=== PATIENT | male | born 1960 ===

== ENCOUNTER 2016-10-17 09:38 | Emergency (ER) | payer OTHER ==
[2016-10-17 09:46] VITALS: RESP 18; TEMP 98; O2SAT 98
--- NOTE | 2016-10-17 09:51 | C.PDOC ---
History Of Present Illness 56 y/o male presents to the ED with complains of swelling behind left ear first noted 5 days ago. Pt denies fever, chills, or any other complaints. Time Seen by Provider: 10/17/16 09:50 Chief Complaint (Nursing): Abnormal Skin Integrity History Per: Patient History/Exam Limitations: no limitations Onset/Duration Of Symptoms: Days Current Symptoms Are (Timing): Still Present Quality Of Symptoms: Swollen Severity: Mild Recent travel outside of the [place]: No Past Medical History Reviewed: Historical Data, Nursing Documentation, Vital Signs Vital Signs: Last Vital Signs Temp 98 F 10/17/16 09:43 Pulse 75 10/17/16 10:38 Resp 18 10/17/16 10:38 BP 124/75 10/17/16 10:38 Pulse Ox 98 10/17/16 10:38 - Medical History PMH: Asthma Family History: States: Unknown Family Hx - Social History Hx Alcohol Use: No Hx Substance Use: No Review Of Systems Constitutional: Negative for: Fever, Chills ENT: Positive for: Other (swelling behind left ear) Physical Exam - Physical Exam Appears: Non-toxic, No Acute Distress Skin: Warm, Dry, No Rash Head: Atraumatic, Normacephalic, Other (2 cm fluctuant area with erythema 2 cm posterior to left mastoid; no mastoid tenderness or swelling) Ear(s): Bilateral: Normal Oral Mucosa: Moist Neck: Normal, Normal ROM, Supple Extremity: Bilateral: Atraumatic Neurological/Psych: Oriented x3, Normal Speech ED Course And Treatment O2 Sat by Pulse Oximetry: 98 (room air) Pulse Ox Interpretation: Normal - Incision & Drainage Of Abscess Anesthesia: Lidocaine 1%, With Epi Prep Used: Sterile Water Procedure: Drained Pus, Irrigated Cavity W/Saline, Packed W/Gauze Medical Decision Making Medical Decision Making: abscess i and d, packed, advise 2 day return wound check Disposition - Disposition Referrals: [facility] [Outside] [facility] [Outside] [facility] [Outside] Disposition: HOME/ ROUTINE Disposition Time: 10:30 Condition: FAIR Additional Instructions: return in 2 days for wound check possible packing removal Prescriptions: Naproxen [Naprosyn] 500 mg PO BID PRN #14 tab PRN Reason: Pain, Mild (1-3) Instructions: Abscess Incision and Drainage (ED) Print Language: GEORGIAN - Clinical Impression Clinical Impression: Abscess - Scribe Statement The provider has reviewed the documentation as recorded by the Shanell Rainey Provider Attestation: All medical record entries made by the Shanell were at my direction and personally dictated by me. I have reviewed the chart and agree that the record accurately reflects my personal performance of the history, physical exam, medical decision making, and the department course for this patient. I have also personally directed, reviewed, and agree with the discharge instructions and disposition.
[2016-10-17] MEDS ORDERED: Lidocaine 1%/Epinephrine 1:100000 30 ml vial IJ STA (09:56)
[2016-10-17] MEDS ORDERED: Lidocaine 2% w Epi 1:100,000 Inj IJ ONE (09:58)
[2016-10-17 10:39] VITALS: BP 124/75; PULSE 75
== END 2016-10-17 10:40 | disposition home or self-care (01) ==
LOC: C.ER 09:38
DX: H60.02 Abscess of left external ear (principal)

== ENCOUNTER 2016-10-19 08:43 | Emergency (ER) | payer OTHER ==
[2016-10-19 08:53] VITALS: RESP 18; TEMP 98.4
--- NOTE | 2016-10-19 09:15 | C.PDOC ---
History Of Present Illness The patient ,a 56 y/o male who is s/p I&D procedure for a left-sided posterior auricular abscess, presents to the ED for a wound check. Patient states the packing came out yesterday during bandage change. Patient notes increased localized swelling to area, but notes it is not as painful as initially. Patient denies fever, chills, discharge. History obtained via can sterilizer. VIA TRANS SP I&D 10/17 L POST AURICULAR ABSCESS FOR WOUND CHECK. PS PACKING CAME OUT YESTERDAY DURING BANDAGE CHANGE. STATES W INCR LOCAL SWELLING TO AREA THOUGH NOT PAINFUL INITIALLY. NO DC, FEVER, CHILLS. EXAM NAD SKIN HEALING INCISION S/P I&D. NO PACKING PRESENT. LOCAL INDURATION, NO TENDERNESS. NO FLUCTUANCE, DC, ERYTHEMA. MDM ABX, REFER CLINIC Time Seen by Provider: 10/19/16 09:14 Chief Complaint (Nursing): Wound Check History Per: Patient, Career Services Director History/Exam Limitations: no limitations Onset/Duration Of Symptoms: Days Ago Current Symptoms Are (Timing): Still Present Location Of Injury: Left: Face (posterior auricular ) Quality Of Symptoms: Painful, Swollen. denies: Draining Additional History Per: Patient Past Medical History Reviewed: Historical Data, Nursing Documentation, Vital Signs Vital Signs: Last Vital Signs Temp 98.4 F 10/19/16 08:51 Pulse 82 10/19/16 09:56 Resp 18 10/19/16 09:56 BP 110/74 10/19/16 09:56 Pulse Ox 97 10/19/16 12:05 - Medical History PMH: Asthma Denies: HIV Surgical History: No Surg Hx Family History: States: Unknown Family Hx - Social History Hx Alcohol Use: No Hx Substance Use: No - Immunization History Hx Tetanus Toxoid Vaccination: Yes Hx Influenza Vaccination: No Hx Pneumococcal Vaccination: No Review Of Systems Except As Marked, All Systems Reviewed And Found Negative. Constitutional: Negative for: Fever, Chills Skin: Positive for: Other (for wound check s/p I&D to left post-auricular region. increased localized swelling, slight pain. no discharge) Physical Exam - Physical Exam Appears: Non-toxic, No Acute Distress Skin: Warm (+), Dry, Other (left post-auricular area: healing incision s/p I&D. No packing present. Localized induration, no tenderness. No fluctuance, discharge, or erythema ) Head: Atraumatic Eye(s): bilateral: Normal Inspection Ear(s): Bilateral: Normal Oral Mucosa: Moist Throat: Normal, No Erythema, No Exudate Neck: Supple Extremity: Normal ROM, Capillary Refill (less than 2 seconds ) Neurological/Psych: Oriented x3, Normal Speech, Normal Cognition Gait: Steady ED Course And Treatment O2 Sat by Pulse Oximetry: 97 (on RA) Pulse Ox Interpretation: Normal Progress - Data Reviewed Data Reviewed: Old records Medical Decision Making Medical Decision Making: ABX, REFER CLINIC Disposition Counseled Patient/Family Regarding: Diagnosis, Need For Followup - Disposition Referrals: [facility] [Outside] [facility] [Outside] Disposition: HOME/ ROUTINE Disposition Time: 09:27 Condition: GOOD Additional Instructions: REGRESE SI SINTOMAS RECURRENTES. CONTINA EL CUIDADO DE L[place] HERIDAS SEGN LO INDICADO ANTERIORMENTE Prescriptions: Cephalexin [cephalexin] 500 mg PO BID #14 cap Instructions: Abscess Follow-up (ED) Print Language: AMERICAN - Clinical Impression Clinical Impression: Wound check, abscess - Scribe Statement The provider has reviewed the documentation as recorded by the Scribe (Candice Tijerina) Provider Attestation: All medical record entries made by the Scribe were at my direction and personally dictated by me. I have reviewed the chart and agree that the record accurately reflects my personal performance of the history, physical exam, medical decision making, and the department course for this patient. I have also personally directed, reviewed, and agree with the discharge instructions and disposition.
[2016-10-19 09:57] VITALS: BP 110/74; PULSE 82
[2016-10-19 11:51] VITALS: O2SAT 97
== END 2016-10-19 09:57 | disposition home or self-care (01) ==
LOC: C.ER 08:43
DX: Z48.00 Encounter for change or removal of nonsurgical wound dressing (principal)

== ENCOUNTER 2016-12-12 09:48 | Emergency (ER) | payer OTHER ==
[2016-12-12 09:58] VITALS: TEMP 98.8
--- NOTE | 2016-12-12 10:18 | C.PDOC ---
History Of Present Illness Patient is presenting with rash to scalp and complaining of 2 week history of pain to L heel. He reports that pain is worse with ambulation. Denies trauma. Time Seen by Provider: 12/12/16 09:56 Chief Complaint (Nursing): Abnormal Skin Integrity Past Medical History Vital Signs: Last Vital Signs Temp 98.8 F 12/12/16 09:53 Pulse 79 12/12/16 11:01 Resp 16 12/12/16 11:01 BP 118/69 12/12/16 11:01 Pulse Ox 98 12/12/16 11:01 - Medical History PMH: Asthma Denies: HIV Family History: States: Unknown Family Hx - Social History Hx Alcohol Use: No Hx Substance Use: No - Immunization History Hx Tetanus Toxoid Vaccination: Yes Hx Influenza Vaccination: Yes Hx Pneumococcal Vaccination: No Review Of Systems Cardiovascular: Negative for: Chest Pain, Palpitations Respiratory: Negative for: Cough, Shortness of Breath, SOB with Excertion, Wheezing Gastrointestinal: Negative for: Nausea, Vomiting, Abdominal Pain, Diarrhea, Constipation Musculoskeletal: Positive for: Foot Pain. Negative for: Neck Pain Skin: Positive for: Rash Neurological: Negative for: Weakness, Numbness, Incoordination Physical Exam - Physical Exam Appears: Well, Non-toxic, No Acute Distress Head: Atraumatic, Normacephalic, Other (tinea capitis to scalp) Eye(s): bilateral: Normal Inspection, PERRL, EOMI Neck: Supple Chest: Symmetrical Cardiovascular: Rhythm Regular Respiratory: Normal Breath Sounds, No Rales, No Rhonchi, No Wheezing Gastrointestinal/Abdominal: Soft, No Tenderness, No Mass, No Distention Extremity: Normal ROM, Tenderness (base of L heel), No Calf Tenderness, No Swelling ED Course And Treatment - Laboratory Results Result Diagrams: 12/12/16 10:20 12/12/16 10:20 O2 Sat by Pulse Oximetry: 96 Medical Decision Making Medical Decision Making: Rash is consistent with tinea capitis. Will get baseline lfts. Will dc wtih shampoo three times weekly x 2 weeks and fluconazole once weekly x 8 weeks. Foot pain is consistent with plantar fascitis. R/o fracture 10:40AM Xray negative for fracture. Disposition - Disposition Referrals: [facility] at [facility] [Outside] Disposition: HOME/ ROUTINE Disposition Time: 10:22 Condition: GOOD Additional Instructions: Take antifungal as prescribed. Return to ED if condition worsens. Follow-up with [facility]. Prescriptions: Fluconazole [Diflucan] 150 mg PO QWK #8 tab Selenium Sulfide [Selsun Blue] 1 apful TOP MWF #1 shampoo Instructions: Tinea Capitis (ED), Plantar Fasciitis (ED) Print Language: ALBANIAN - Clinical Impression Clinical Impression: Plantar fasciitis, Tinea capitis
[2016-12-12 10:26] LABS: BASO # 0.1 K/uL (0.0-0.2); BASO % 1.2 % (0.0-2.0); EOS # 0.8 K/uL (0.0-0.7); EOS % 9.1 % (0.0-4.0); HEMOGLOBIN 14.7 g/dL (12.0-18.0); LYMPH # 1.8 K/uL (1.0-4.3); LYMPH % 20.7 % (20.0-40.0); MEAN CELL VOLUME 94.2 fL (80.0-94.0); MEAN CORPUSCULAR HEMOGLOBIN 32.4 pg (27.0-31.0); MEAN CORPUSCULAR HGB CONC 34.4 g/dL (33.0-37.0); MEAN PLATELET VOLUME 8.1 fL (7.2-11.7); MONO # 0.6 K/uL (0.0-0.8); MONO % 6.8 % (0.0-10.0); NEUT # 5.3 K/uL (1.8-7.0); NEUT % 62.2 % (50.0-75.0); RBC 4.55 Mil/uL (4.40-5.90); RED CELL DISTRIBUTION WIDTH 13.2 % (11.5-14.5); WHITE BLOOD COUNT 8.5 K/uL (4.8-10.8)
[2016-12-12 10:32] LABS: ALBUMIN 3.8 g/dL (3.5-5.0)
[2016-12-12 10:35] LABS: ALB/GLOB RATIO 1.1 (1.0-2.1); AST/SGOT 59 U/L (17-59); GFR AFRICAN-AMERICAN > 60; GFR NON-AFRICAN AMERICAN > 60
[2016-12-12 10:36] LABS: ALT/SGPT 114 U/L (21-72); BLOOD UREA NITROGEN 10 mg/dL (9-20); CALCIUM 7.7 mg/dl (8.6-10.4)
--- NOTE | 2016-12-12 10:52 | RAD ---
PROCEDURE: Left Foot Radiographs. HISTORY: foot pain COMPARISON: None available. FINDINGS: BONES: No acute displaced fracture. JOINTS: No dislocation. SOFT TISSUES: Vascular calcifications. No evidence of radiopaque foreign body. OTHER FINDINGS: None. IMPRESSION: No acute displaced fracture, dislocation, or significant joint effusion identified. If symptoms persist, or if there is continued clinical concern, x-ray follow-up in 7-10 days should be considered.
[2016-12-12 11:02] VITALS: BP 118/69; PULSE 79; RESP 16
[2016-12-12 12:15] VITALS: O2SAT 96
== END 2016-12-12 11:01 | disposition home or self-care (01) ==
LOC: C.ER 09:48
DX: M72.2 Plantar fascial fibromatosis (principal); B35.0 Tinea barbae and tinea capitis

== ENCOUNTER 2017-08-06 18:49 | Emergency (ER) | payer OTHER ==
[2017-08-06] MEDS ORDERED: Albuterol-Ipratrop 3 mg / 0.5 (3 ml) UD ONE ×2 (19:04→19:50)
[2017-08-06 19:27] VITALS: RESP 22
[2017-08-06] MEDS: Albuterol-Ipratrop 3 mg / 0.5 (3 ml) UD IH SCH ×3 (19:40→20:06)
[2017-08-06 20:25] LABS: BASO % 0.5 % (0.0-2.0); EOS % 13.8 % (0.0-4.0); HEMOGLOBIN 14.3 g/dL (12.0-18.0); LYMPH % 26.8 % (20.0-40.0); MEAN CELL VOLUME 95.1 fL (80.0-94.0); MEAN CORPUSCULAR HEMOGLOBIN 32.4 pg (27.0-31.0); MEAN CORPUSCULAR HGB CONC 34.1 g/dL (33.0-37.0); MEAN PLATELET VOLUME 8.5 fL (7.2-11.7); MONO # 0.7 K/uL (0.0-0.8); NEUT # 3.6 K/uL (1.8-7.0); NEUT % 48.9 % (50.0-75.0); RBC 4.4 Mil/uL (4.40-5.90); RED CELL DISTRIBUTION WIDTH 13.1 % (11.5-14.5); WHITE BLOOD COUNT 7.4 K/uL (4.8-10.8)
[2017-08-06 20:36] LABS: ALB/GLOB RATIO 1.2 (1.0-2.1); ALBUMIN 3.8 g/dL (3.5-5.0); ALT/SGPT 80 U/L (21-72); AST/SGOT 42 U/L (17-59); BLOOD UREA NITROGEN 16 mg/dL (9-20); CALCIUM 7.4 mg/dl (8.6-10.4); GFR AFRICAN-AMERICAN > 60; GFR NON-AFRICAN AMERICAN > 60
[2017-08-06 20:45] LABS: B-TYPE NATRIURETIC PEPTIDE 23.6 pg/mL (0-900)
[2017-08-06] MEDS ORDERED: Lactated Ringer's 1,000 ML IVB ONE (20:56)
[2017-08-06] MEDS ORDERED: Lactated Ringer's 1,000 ML ONE (21:11)
--- NOTE | 2017-08-06 21:23 | C.PDOC ---
Time Seen by Provider: 08/06/17 19:32 Chief Complaint (Nursing): Shortness Of Breath History Per: Patient, Family Onset/Duration Of Symptoms: Days (around 3 weeks) Current Symptoms Are (Timing): Worse Current Respiratory Medications: Albuterol Severity: Moderate Associated Symptoms: Productive Cough Additional History Per: Prior Records Past Medical History Reviewed: Historical Data, Nursing Documentation, Vital Signs Vital Signs: Last Vital Signs Temp 98.5 F 08/06/17 21:41 Pulse 92 H 08/06/17 21:41 Resp 22 08/06/17 21:41 BP 131/71 08/06/17 21:41 Pulse Ox 92 L 08/06/17 21:41 - Medical History PMH: Asthma Family History: States: Unknown Family Hx - Social History Hx Tobacco Use: No Hx Alcohol Use: No Hx Substance Use: No - Immunization History Hx Tetanus Toxoid Vaccination: Yes Hx Influenza Vaccination: No Hx Pneumococcal Vaccination: No Review Of Systems Except As Marked, All Systems Reviewed And Found Negative. Constitutional: Negative for: Fever ENT: Negative for: Throat Pain Cardiovascular: Negative for: Chest Pain Respiratory: Positive for: Shortness of Breath, Wheezing. Negative for: Hemoptysis Gastrointestinal: Negative for: Vomiting, Abdominal Pain Musculoskeletal: Negative for: Neck Pain, Back Pain, Leg Pain Skin: Negative for: Rash Neurological: Negative for: Weakness, Numbness Physical Exam - Physical Exam Appears: Non-toxic, No Acute Distress Skin: Normal Color, Warm, Dry, No Rash Head: Atraumatic, Normacephalic Eye(s): bilateral: Normal Inspection, PERRL, EOMI Neck: Normal ROM, Supple Cardiovascular: Rhythm Regular Respiratory: No Accessory Muscle Use, Wheezing Gastrointestinal/Abdominal: Soft, No Tenderness Back: No CVA Tenderness Extremity: Normal ROM, No Pedal Edema, No Calf Tenderness Neurological/Psych: Oriented x3, Normal Speech, Normal Motor, Normal Sensation ED Course And Treatment - Laboratory Results Result Diagrams: 08/06/17 20:12 08/06/17 20:12 Lab Interpretation: No Acute Changes ECG: Interpreted By Me, Viewed By Me ECG Rhythm: Sinus Rhythm, Nonspecific Changes Rate From EC O2 Sat by Pulse Oximetry: 97 Pulse Ox Interpretation: Normal - Radiology CXR: Interpreted by Me, Viewed By Me CXR Interpretation: Yes: Other (Hypoinflation) Progress - Interventions Interventions:: Observation, Intravenous fluid - Medications Administered Inhaled nebulized: Anticholinergic, Beta-2 agonist Intravenous: Corticosteroid - Data Reviewed Data Reviewed: Lab, Diagnostic imaging, EKG, Old records - Patient Status Patient status: Mostly improved - Continuity of Care Discussed patient case with:: Patient, Family-HIPPA compliant, ED Nurse - Patient Plan Patient Plan: Discharge, F/U with PCP, Continue present meds Disposition Counseled Patient/Family Regarding: Studies Performed, Diagnosis, Need For Followup, Rx Given - Disposition Referrals: [facility] [Outside] Disposition: HOME/ ROUTINE Disposition Time: 22:12 Condition: IMPROVED Additional Instructions: Follow up with your doctor or in the clinic this week. Return to the ER if you develop fever, chest pain, shortness of breath, worsening of symptoms or if you have any other concerns. Prescriptions: Doxycycline Hyclate 100 mg PO BID #14 capsule predniSONE [predniSONE Tab] 2 tab PO DAILY #10 tab Instructions: Acute Bronchitis, Adult (DC) Forms: Gen Discharge Inst Ukrainian Print Language: LIBERIAN - Clinical Impression Clinical Impression: Acute asthmatic bronchitis
[2017-08-06 22:16] VITALS: BP 130/71; PULSE 96
[2017-08-06 22:28] VITALS: TEMP 98.6
[2017-08-06 22:29] VITALS: O2SAT 96
--- NOTE | 2017-08-07 08:38 | RAD ---
HISTORY: COMPARISON: No prior. TECHNIQUE: Chest PA and lateral FINDINGS: LINES AND TUBES: None. LUNG AND PLEURA: The lungs are well inflated and clear. There are increased streaky opacities in the lungs with mild peribronchial thickening. No focal consolidation HEART AND MEDIASTINUM: The heart is not enlarged. The hilar and mediastinal contours are within normal limits. SKELETAL STRUCTURES: The bony structures are within normal limits for the patient's age. VISUALIZED UPPER ABDOMEN: Normal. OTHER FINDINGS: None. IMPRESSION: Findings are most compatible with reactive small airway disease/ viral bronchitis. No lobar pneumonia.
--- NOTE | 2017-08-08 19:17 | CARD ---
APPROVED REPORT EKG Measurement Heart [id number] <Conclusion> Normal sinus rhythm Prolonged QT Abnormal ECG
== END 2017-08-06 22:29 | disposition home or self-care (01) ==
LOC: C.ER 18:49
DX: J45.909 Unspecified asthma, uncomplicated (principal)
CPT/HCPCS: 71046; 80053; 83880; 84484; 85025; 94150; 94640; 96374; 99285; J2930; J7120

== ENCOUNTER 2017-08-08 11:15 | Emergency (ER) | payer OTHER, SELFPAY ==
[2017-08-08] MEDS ORDERED: MethylPREDNISolone 40 mg Vial IVP STA (12:48)
[2017-08-08] MEDS ORDERED: MethylPREDNISolone 40 mg Vial ONE (13:02)
[2017-08-08] MEDS ORDERED: Albuterol-Ipratrop 3 mg / 0.5 (3 ml) UD ONE (13:02)
[2017-08-08] MEDS: Albuterol-Ipratrop 3 mg / 0.5 (3 ml) UD IH SCH ×2 (13:11→13:33)
[2017-08-08 13:32] LABS: BASO % 0.3 % (0.0-2.0); EOS # 0.1 K/uL (0.0-0.7); EOS % 0.5 % (0.0-4.0); HEMOGLOBIN 14.4 g/dL (12.0-18.0); LYMPH # 1.1 K/uL (1.0-4.3); LYMPH % 10.4 % (20.0-40.0); MEAN CELL VOLUME 95.6 fL (80.0-94.0); MEAN CORPUSCULAR HEMOGLOBIN 31.8 pg (27.0-31.0); MEAN CORPUSCULAR HGB CONC 33.2 g/dL (33.0-37.0); MEAN PLATELET VOLUME 8.4 fL (7.2-11.7); MONO # 0.6 K/uL (0.0-0.8); MONO % 5.1 % (0.0-10.0); NEUT # 9.2 K/uL (1.8-7.0); NEUT % 83.7 % (50.0-75.0); NRBC % 0.1 % (0.0-2.0); RBC 4.52 Mil/uL (4.40-5.90); RED CELL DISTRIBUTION WIDTH 13.4 % (11.5-14.5)
[2017-08-08 13:44] LABS: ALB/GLOB RATIO 1.2 (1.0-2.1); ALBUMIN 4.2 g/dL (3.5-5.0); ALT/SGPT 80 U/L (21-72); AST/SGOT 45 U/L (17-59); BLOOD UREA NITROGEN 19 mg/dL (9-20); CALCIUM 8.2 mg/dl (8.6-10.4); GFR AFRICAN-AMERICAN > 60; GFR NON-AFRICAN AMERICAN > 60
[2017-08-08 13:53] LABS: B-TYPE NATRIURETIC PEPTIDE 105 pg/mL (0-900)
--- NOTE | 2017-08-08 14:46 | C.PDOC ---
History Of Present Illness 57 year old male presents to the ED for evaluation of shortness of breath which began a few days ago. Patient was evaluated in the ED two days ago for similar symptoms and was prescribed Prednisone and antibiotics, which he has been taking as prescribed. Patient developed shortness of breath today and found no relief after using his inhaler. Patient denies fever, chills, cough, chest pain. Time Seen by Provider: 08/08/17 12:32 Chief Complaint (Nursing): Shortness Of Breath History Per: Patient History/Exam Limitations: no limitations Onset/Duration Of Symptoms: Days (2) Current Symptoms Are (Timing): Still Present Quality: denies: "Pain" Current Respiratory Medications: See Home Med List, Prednisone Associated Symptoms: denies: Fever, Chills, Chest Pain, Bloody Cough, Productive Cough Additional History Per: Patient Past Medical History Reviewed: Historical Data, Nursing Documentation, Vital Signs Vital Signs: Last Vital Signs Temp 97.8 F 08/08/17 15:15 Pulse 82 08/08/17 15:15 Resp 18 08/08/17 15:15 BP 101/63 08/08/17 15:15 Pulse Ox 96 08/08/17 15:50 - Medical History PMH: Asthma Denies: HIV Surgical History: No Surg Hx Family History: States: Unknown Family Hx - Social History Hx Tobacco Use: No Hx Alcohol Use: No Hx Substance Use: No - Immunization History Hx Tetanus Toxoid Vaccination: Yes Hx Influenza Vaccination: No Hx Pneumococcal Vaccination: No Review Of Systems Constitutional: Negative for: Fever, Chills Cardiovascular: Negative for: Chest Pain Respiratory: Positive for: Shortness of Breath. Negative for: Cough Physical Exam - Physical Exam Appears: Non-toxic, No Acute Distress Skin: Normal Color, Warm, Dry Head: Atraumatic, Normacephalic Eye(s): bilateral: Normal Inspection Oral Mucosa: Moist Neck: Supple Chest: Symmetrical, No Deformity, No Tenderness Cardiovascular: Rhythm Regular, No Murmur Respiratory: No Rales, No Rhonchi, Wheezing (expiratory ) Extremity: Normal ROM, Capillary Refill (less than 2 seconds ) Neurological/Psych: Oriented x3, Normal Speech, Normal Cognition ED Course And Treatment - Laboratory Results Result Diagrams: 08/08/17 13:24 08/08/17 13:24 Lab Interpretation: No Changes Compared To Prior Results O2 Sat by Pulse Oximetry: 96 (on RA ) Pulse Ox Interpretation: Normal Medical Decision Making Medical Decision Making: Impression: 57 year old male with shortness of breath Plan: * Bloodwork * urinalysis * Duoneb INH * Solu-Medrol IVP * reassess and disposition Progress: Labs reviewed and no acute changes from prior visit. CXR from 2 days ago shows no infiltrates. 1445 On reassessment, patient is resting comfortably and is showing no signs of respiratory distress. He has no fever and lungs clearer. Patient states he is feeling better and is stable for discharge. Patient is advised to follow up with his PMD within 1-2 days for further evaluation and/or return to the ED if symptoms return or worsen. Disposition Counseled Patient/Family Regarding: Diagnosis, Need For Followup, Rx Given - Disposition Referrals: [facility] [Outside] [facility] [Outside] Disposition: HOME/ ROUTINE Disposition Time: 14:45 Condition: IMPROVED Additional Instructions: Por favor, siga con la clnica para ms cuidados Contine con los medicamentos recetados y use nebulizador diariamente. 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 - Scribe Statement The provider has reviewed the documentation as recorded by the Scribe (Candice Tijerina) All medical record entries made by the Scribe were at my direction and personally dictated by me. I have reviewed the chart and agree that the record accurately reflects my personal performance of the history, physical exam, medical decision making, and the department course for this patient. I have also personally directed, reviewed, and agree with the discharge instructions and disposition.
[2017-08-08 15:15] VITALS: BP 101/63; PULSE 82; RESP 18; TEMP 97.8
[2017-08-08 15:19] VITALS: O2SAT 96
== END 2017-08-08 15:15 | disposition home or self-care (01) ==
LOC: C.ER 11:15
DX: J45.909 Unspecified asthma, uncomplicated (principal)
CPT/HCPCS: 80053; 83880; 85025; 94150; 94640; 96374; 99284; J2920

== ENCOUNTER 2017-08-11 10:40 | Inpatient (IN) | payer MEDICAID, SELFPAY ==
[2017-08-11 10:52] VITALS: BMI 31.8
[2017-08-11] MEDS ORDERED: Albuterol-Ipratrop 3 mg / 0.5 (3 ml) UD ONE ×3 (11:05→16:36)
[2017-08-11] MEDS ORDERED: Albuterol-Ipratrop 3 mg / 0.5 (3 ml) UD INH STA (11:11)
--- NOTE | 2017-08-11 11:27 | C.PDOC ---
History Of Present Illness 57 year old male with PMHx of asthma presents to the ED c/o cough, SOB that started yesterday. Patient was seen on 08/06 and 08/08 for the same symptoms. Patient states SOB worsened yesterday was unable to sleep. 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 Patient was s/p duoneb prior to my evaluation. Patient denies CP, weakness, numbness, dizziness, nausea, vomit, recent travel. PS TOOK PREDNISONE TODAY Time Seen by Provider: 08/11/17 11:08 Chief Complaint (Nursing): Shortness Of Breath History Per: Patient History/Exam Limitations: no limitations Onset/Duration Of Symptoms: Days Current Symptoms Are (Timing): Still Present Associated Symptoms: Cough Preciptating Factors: None Severity: Mild Recent travel outside of the [place]: No Additional History Per: Patient - Asthma History Date Of Last ED Visit: 08/08/17 Last Hospital Visit: 08/08/17 Medication Use: Daily (x2) Control Medications: Inhaled Steroids Past Medical History Reviewed: Historical Data, Nursing Documentation, Vital Signs Vital Signs: Last Vital Signs Temp 97.9 F 08/11/17 16:58 Pulse 95 H 08/11/17 16:58 Resp 16 08/11/17 16:58 BP 125/75 08/11/17 16:58 Pulse Ox 97 08/11/17 16:58 - Medical History PMH: Asthma Denies: HIV Surgical History: No Surg Hx Family History: States: Unknown Family Hx - Social History Hx Tobacco Use: No Hx Alcohol Use: No Hx Substance Use: No - Immunization History Hx Tetanus Toxoid Vaccination: Yes Hx Influenza Vaccination: No Hx Pneumococcal Vaccination: No Review Of Systems Constitutional: Negative for: Fever, Chills ENT: Negative for: Nose Discharge, Nose Congestion Respiratory: Positive for: Cough, Shortness of Breath Gastrointestinal: Negative for: Vomiting, Abdominal Pain Musculoskeletal: Negative for: Back Pain Skin: Negative for: Rash Neurological: Negative for: Weakness, Numbness, Headache, Dizziness Physical Exam - Physical Exam Appears: Non-toxic, No Acute Distress Skin: Normal Color, Warm, Dry Head: Atraumatic, Normacephalic Eye(s): bilateral: Normal Inspection Ear(s): Bilateral: Normal Nose: No Discharge Oral Mucosa: Moist Neck: Normal ROM, Supple Chest: Symmetrical Cardiovascular: Rhythm Regular, No Murmur Respiratory: No Accessory Muscle Use, No Rales, No Rhonchi, Wheezing (B/L expiratory ), Other (no retractions) Gastrointestinal/Abdominal: Soft, No Tenderness, No Guarding, No Rebound Extremity: Normal ROM, No Tenderness, No Pedal Edema, Capillary Refill (< 2 seconds), No Swelling Pulses: Left Dorsalis Pedis: Normal, Right Dorsalis Pedis: Normal Neurological/Psych: Oriented x3, Normal Speech ED Course And Treatment - Laboratory Results Result Diagrams: 08/11/17 12:09 08/11/17 12:09 Interpretation Of Abnormal: HYPOXEMIA ECG: Interpreted By Ks ECG Rhythm: Sinus Tachycardia ECG Interpretation: Abnormal Rate From EC O2 Sat by Pulse Oximetry: 97 (On RA) Pulse Ox Interpretation: Normal - CT Scan/US CT chest Other Rad Studies (CT/US): Read By Radiologist, Radiology Report Reviewed CT/US Interpretation: PROCEDURE: CT Chest with contrast (Pulmonary Angiogram). HISTORY: HYPOXEMIA, SOB r/o PE. COMPARISON: None available. TECHNIQUE: Axial computed tomography images were obtained of the chest in the pulmonary arterial phase of enhancement. Coronal and sagittal reformatted images were created and reviewed. Intravenous contrast dose: 100 mL of Visipaque 320. Radiation dose: Total exam DLP = 574.08 mGy-cm. This CT exam was performed using one or more of the following dose reduction techniques: Automated exposure control, adjustment of the mA and/or kV according to patient size, and/ or use of iterative reconstruction technique. Limited evaluation of secondary pulmonary arterial branches to lack of adequate contrast opacification. FINDINGS: PULMONARY ARTERIES: Unremarkable. No pulmonary embolism in the main and right and left pulmonary arteries. Segmental and subsegmental arteries suboptimally evaluated. AORTA: Mild dilatation of the ascending aorta measuring up to 4.1 centimeters. LUNGS: Unremarkable. No nodule, mass or pulmonary consolidation. PLEURAL SPACES: Unremarkable. No effusion or pneuomothorax. HEART: Unremarkable. No cardiomegaly. No significant pericardial effusion. LYMPH NODES: Mildly prominent lymph nodes in the mediastinum. The largest lymph node is seen in the aortopulmonary window measuring approximately 1.2 x 2.5 centimeters. This is nonspecific. BONES, CHEST WALL: Mild degenerative changes of the shoulders. OTHER FINDINGS: Mildly heterogeneous thyroid gland. Dedicated ultrasound can be obtained as per clinical indications. Mild thickening of the esophagus. IMPRESSION: No large pulmonary embolus. Mildly prominent lymph nodes in the mediastinum, largest being 1.2 x 2.5 centimeters in the aortopulmonary window. Mild dilatation of the ascending aorta measuring up to 4.1 centimeters. Mild heterogeneity of the thyroid gland. Dedicated ultrasound can be obtained for further evaluation. Mild thickening of the esophagus noted. Upper endoscopy can be obtained if clinically significant. Other findings as above. Progress - Re-Evaluation Re-evaluation Note: 08/11/17 14:16 FEELS BETTER W O2. VSS. D/W DR TREVIÑO AWARE OF ER FINDINGS. - Data Reviewed Data Reviewed: Lab, Diagnostic imaging, EKG, Old records Medical Decision Making Medical Decision Making: Impression: asthma exacerbation Plan: * ABG * EKG * CT angio chest * Labs * Duoneb 3 ml IH * Nebulizer treatment Disposition Counseled Patient/Family Regarding: Studies Performed, Diagnosis - Disposition Disposition: HOSPITALIZED Disposition Time: 14:16 Condition: STABLE - POA Present On Arrival: Poor Glycemic Control - Clinical Impression Clinical Impression: Hypoxemia, Dyspnea, Asthma exacerbation - Scribe Statement The provider has reviewed the documentation as recorded by the Scribe Rebel Rinaldi All medical record entries made by the Scribe were at my direction and personally dictated by me. I have reviewed the chart and agree that the record accurately reflects my personal performance of the history, physical exam, medical decision making, and the department course for this patient. I have also personally directed, reviewed, and agree with the discharge instructions and disposition. Decision To Admit - Pt Status Changed To: Hospital Disposition Of: Inpatient - Admit Certification Admit to Inpatient:: After my assessment, the patient will require hospitalization for at least two midnights. This is because of the severity of symptoms shown, intensity of services needed, and/or the medical risk in this patient being treated as an outpatient. - InPatient: Physician Admission Certification:: SEE NOTE - . Bed Request Type: Telemetry Admitting Physician: Alejandro Treviño Patient Diagnosis: Hypoxemia, Dyspnea, Asthma exacerbation
[2017-08-11 11:52] LABS: ABG ALLEN TEST POS; ARTERIAL BLOOD GAS HCO3 25.8 mmol/L (21-28); ARTERIAL BLOOD GAS HEMOGLOBIN 15.4 g/dL (11.7-17.4); ARTERIAL BLOOD GAS O2 SAT 94.4 % (95-98); ARTERIAL BLOOD GAS PCO2 36 mm/Hg (35-45); ARTERIAL BLOOD GAS PH 7.45 (7.35-7.45); ARTERIAL BLOOD GAS PO2 62 mm/Hg (80-100); ARTERIAL BLOOD GAS TCO2 26.1 mmol/L (22-28)
[2017-08-11 12:16] LABS: BASO % 0.2 % (0.0-2.0); EOS # 0.1 K/uL (0.0-0.7); EOS % 0.4 % (0.0-4.0); HEMOGLOBIN 14.9 g/dL (12.0-18.0); LYMPH # 0.8 K/uL (1.0-4.3); LYMPH % 6.8 % (20.0-40.0); MEAN CELL VOLUME 94.6 fL (80.0-94.0); MEAN CORPUSCULAR HEMOGLOBIN 32.5 pg (27.0-31.0); MEAN CORPUSCULAR HGB CONC 34.3 g/dL (33.0-37.0); MONO # 0.8 K/uL (0.0-0.8); MONO % 6.4 % (0.0-10.0); NEUT # 10.1 K/uL (1.8-7.0); NEUT % 86.2 % (50.0-75.0); PLATELET COUNT 234 K/uL (130-400); RBC 4.57 Mil/uL (4.40-5.90); RED CELL DISTRIBUTION WIDTH 13.1 % (11.5-14.5); WHITE BLOOD COUNT 11.8 K/uL (4.8-10.8)
[2017-08-11 12:35] LABS: ALB/GLOB RATIO 1.1 (1.0-2.1); ALBUMIN 4.1 g/dL (3.5-5.0); ALT/SGPT 69 U/L (21-72); AST/SGOT 39 U/L (17-59); BLOOD UREA NITROGEN 12 mg/dL (9-20); CALCIUM 7.9 mg/dl (8.6-10.4); GFR AFRICAN-AMERICAN > 60; GFR NON-AFRICAN AMERICAN > 60
[2017-08-11 12:40] LABS: B-TYPE NATRIURETIC PEPTIDE 50.5 pg/mL (0-900)
[2017-08-11] MEDS ORDERED: Iodixanol 320 MG/ML 100 ML BOTTLE IV ONE (12:48)
[2017-08-11 12:50] LABS: EOSINOPHIL 1 % (0-4); LYMPHOCYTE 9 % (20-40); MONOCYTE 3 % (0-10); NEUTROPHIL 87 % (50-75); PLATELET ESTIMATE NORMAL (NORMAL); TOTAL CELLS COUNTED 100
[2017-08-11] MEDS: Albuterol-Ipratrop 3 mg / 0.5 (3 ml) UD IH SCH (13:34)
--- NOTE | 2017-08-11 13:42 | CT ---
PROCEDURE: CT Chest with contrast (Pulmonary Angiogram) HISTORY: HYPOXEMIA, SOB r/o PE COMPARISON: None available. TECHNIQUE: Axial computed tomography images were obtained of the chest in the pulmonary arterial phase of enhancement. Coronal and sagittal reformatted images were created and reviewed. Intravenous contrast dose: 100 mL of Visipaque 320 Radiation dose: Total exam DLP = 574.08 mGy-cm. This CT exam was performed using one or more of the following dose reduction techniques: Automated exposure control, adjustment of the mA and/or kV according to patient size, and/or use of iterative reconstruction technique. Limited evaluation of secondary pulmonary arterial branches to lack of adequate contrast opacification. FINDINGS: PULMONARY ARTERIES: Unremarkable. No pulmonary embolism in the main and right and left pulmonary arteries. Segmental and subsegmental arteries suboptimally evaluated. AORTA: Mild dilatation of the ascending aorta measuring up to 4.1 centimeters. LUNGS: Unremarkable. No nodule, mass or pulmonary consolidation. PLEURAL SPACES: Unremarkable. No effusion or pneuomothorax. HEART: Unremarkable. No cardiomegaly. No significant pericardial effusion. LYMPH NODES: Mildly prominent lymph nodes in the mediastinum. The largest lymph node is seen in the aortopulmonary window measuring approximately 1.2 x 2.5 centimeters. This is nonspecific. BONES, CHEST WALL: Mild degenerative changes of the shoulders. OTHER FINDINGS: Mildly heterogeneous thyroid gland. Dedicated ultrasound can be obtained as per clinical indications. Mild thickening of the esophagus. IMPRESSION: No large pulmonary embolus. Mildly prominent lymph nodes in the mediastinum, largest being 1.2 x 2.5 centimeters in the aortopulmonary window. Mild dilatation of the ascending aorta measuring up to 4.1 centimeters. Mild heterogeneity of the thyroid gland. Dedicated ultrasound can be obtained for further evaluation. Mild thickening of the esophagus noted. Upper endoscopy can be obtained if clinically significant. Other findings as above.
--- NOTE | 2017-08-11 16:12 | CP.PCM.HP ---
<DashaleonardoSwetha perezZenon - Last Filed: 08/11/17 15:58> History of Present Illness - History of Present Illness History of Present Illness: HPI: Patient is a 57 year old male with a history of asthma, presents to the ED with complaints of shortness of breath. Patient presented to the ED on Monday and Monday this week with the same complaints. He was sent home with prednisone and amoxicillin; however, patient states he feels worse than before. Patient states his symptoms started 3 weeks ago and are progressively worsening. He states he used his nebulizer 3 times and his albuterol 8 times without relief. Patient reports a similar episode 8 years ago, but has not had any since. He denies recent sickness, sick contacts, environmental triggers, and occupational triggers. Patient complains of chest pain with coughing, a nonproductive cough, headaches, dyspnea at rest and with exertion. Patient states he sleeps on an incline, becomes out of breath after walking up 5 stairs , and short of breath walking to the bathroom. Patient denies chest pain, abdominal pain, nausea, vomiting, fevers, leg pain and swelling, dysuria, diarrhea, and constipation. 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 Allergies: NKDA Medications: albuterol prn, nebulizer prn Present on Admission - Present on Admission Any Indicators Present on Admission: No Review of Systems - Constitutional Constitutional: Headache. absent: Chills, Fever, Weakness - EENT Nose/Mouth/Throat: absent: Sore Throat - Cardiovascular Cardiovascular: Chest Pain (with coughing), Dyspnea, Dyspnea on Exertion, Rapid Heart Rate. absent: Edema, Leg Edema, Palpitations - Respiratory Respiratory: Cough (nonproductive), Dyspnea, Dyspnea on Exertion, Wheezing, Pain with Coughing - Gastrointestinal Gastrointestinal: absent: Abdominal Pain, Constipation, Diarrhea, Hematemesis, Hematochezia, Nausea, Vomiting - Genitourinary Genitourinary: absent: Dysuria, Hematuria, Urinary Frequency - Integumentary Integumentary: absent: Rash - Neurological Neurological: Headaches. absent: Dizziness, Weakness - Endocrine Endocrine: Fatigue, Palpitations Past Patient History - Infectious Disease Hx of Infectious Diseases: None - Past Social History Smoking Status: Never Smoked - CARDIAC Hx Cardiac Disorders: No - PULMONARY Hx Asthma: Yes - NEUROLOGICAL Hx Neurological Disorder: No - HEENT Hx HEENT Problems: No - HEMATOLOGICAL/ONCOLOGICAL Hx Human Immunodeficiency Virus (HIV): No - MUSCULOSKELETAL/RHEUMATOLOGICAL Hx Falls: No - PSYCHIATRIC Hx Substance Use: No - SURGICAL HISTORY Hx Surgeries: No - ANESTHESIA Hx Anesthesia: No Meds Allergies/Adverse Reactions: Allergies Allergy/AdvReac Type Severity Reaction Status Date / Time No Known Allergies Allergy Verified 08/11/17 10:50 Physical Exam - Head Exam Head Exam: ATRAUMATIC, NORMOCEPHALIC - Eye Exam Eye Exam: EOMI, Normal appearance, PERRL - ENT Exam ENT Exam: Mucous Membranes Moist - Respiratory Exam Respiratory Exam: Decreased Breath Sounds, Wheezes, Respiratory Distress. absent: Clear to Auscultation Bilateral, Rales, Rhonchi, NORMAL BREATHING PATTERN - Cardiovascular Exam Cardiovascular Exam: Tachycardia, REGULAR RHYTHM, +S1, +S2 - GI/Abdominal Exam GI & Abdominal Exam: Normal Bowel Sounds, Soft. absent: Firm, Tenderness - Extremities Exam Extremities exam: Positive for: normal inspection, pedal pulses present. Negative for: pedal edema, tenderness - Neurological Exam Neurological exam: Alert, Oriented x3 - Psychiatric Exam Psychiatric exam: Normal Affect, Normal Mood - Skin Skin Exam: Dry, Intact, Warm Results - Vital Signs Recent Vital Signs: Last Vital Signs Temp 98.8 F 08/11/17 10:54 Pulse 112 H 08/11/17 10:54 Resp 26 H 08/11/17 11:09 BP 159/84 H 08/11/17 10:54 Pulse Ox 97 08/11/17 14:17 - Labs Result Diagrams: 08/11/17 12:09 08/11/17 12:09 Labs: Laboratory Results - last 24 hr 08/11/17 08/11/17 08/11/17 11:49 12:09 12:09 WBC 11.8 H RBC 4.57 Hgb 14.9 Hct 43.2 MCV 94.6 H MCH 32.5 H MCHC 34.3 RDW 13.1 Plt Count 234 MPV 8.0 Neut % (Auto) 86.2 H Lymph % (Auto) 6.8 L Young % (Auto) 6.4 Eos % (Auto) 0.4 Baso % (Auto) 0.2 Neut # (Auto) 10.1 H Lymph # (Auto) 0.8 L Young # (Auto) 0.8 Eos # (Auto) 0.1 Baso # (Auto) 0.0 Neutrophils % (Manual) 87 H Lymphocytes % (Manual) 9 L Monocytes % (Manual) 3 Eosinophils % (Manual) 1 Platelet Estimate Normal D-Dimer, Quantitative Puncture Site Rr pCO2 36 pO2 62 L HCO3 25.8 ABG pH 7.45 ABG Total CO2 26.1 ABG O2 Saturation 94.4 L ABG Base Excess 1.3 ABG Hemoglobin 15.4 ABG Carboxyhemoglobin 1.6 H POC ABG HHb (Measured) 5.4 H ABG Methemoglobin 1.5 Wilfredo Test Pos Hgb O2 Saturation 91.5 L Sodium 140 Potassium 4.0 Chloride 101 Carbon Dioxide 24 Anion Gap 19 BUN 12 Creatinine 0.6 L Est GFR ( Amer) > 60 Est GFR (Non-Af Amer) > 60 Random Glucose 160 H Calcium 7.9 L Total Bilirubin 0.5 AST 39 ALT 69 Alkaline Phosphatase 89 Troponin I < 0.0120 NT-Pro-B Natriuret Pep 50.5 Total Protein 7.6 Albumin 4.1 Globulin 3.5 Albumin/Globulin Ratio 1.1 08/11/17 12:09 WBC RBC Hgb Hct MCV MCH MCHC RDW Plt Count MPV Neut % (Auto) Lymph % (Auto) Young % (Auto) Eos % (Auto) Baso % (Auto) Neut # (Auto) Lymph # (Auto) Young # (Auto) Eos # (Auto) Baso # (Auto) Neutrophils % (Manual) Lymphocytes % (Manual) Monocytes % (Manual) Eosinophils % (Manual) Platelet Estimate D-Dimer, Quantitative < 200 Puncture Site pCO2 pO2 HCO3 ABG pH ABG Total CO2 ABG O2 Saturation ABG Base Excess ABG Hemoglobin ABG Carboxyhemoglobin POC ABG HHb (Measured) ABG Methemoglobin Wilfredo Test Hgb O2 Saturation Sodium Potassium Chloride Carbon Dioxide Anion Gap BUN Creatinine Est GFR ( Amer) Est GFR (Non-Af Amer) Random Glucose Calcium Total Bilirubin AST ALT Alkaline Phosphatase Troponin I NT-Pro-B Natriuret Pep Total Protein Albumin Globulin Albumin/Globulin Ratio Assessment & Plan (1) Asthma exacerbation Assessment and Plan: Hx of asthma CXR (08/06/17): findings most compatibile with reactive small airway disease/ viral bronchitis; no lobar pneumonia. Chest CTA (08/11/17): no large PE; mildly prominent lymph nodes in mediastinum, largest being 1/2x2/5cm in [id number] window; mild dilatation of the ascending aorta measuring up to 4.1cm; mild heterogeneity of the thyroid gland; mild thickening of esophagus. Afebrile, no leukocytosis/bandemia TSH/Free T4: f/u results UDS: f/u results Troponins x1: negative; f/u trops x2 EKG: sinus tachycardiac @103bpm; f/u EKGx2 Influenza: f/u results Echo: f/u results Duonebs Q4 GURPREET Pulmicort 0.5 INH BID Solumedrol 60mg IV Q6 gurpreet Singulair 10mg PO HS Rocephin 1gm Q24h O2 via nasal cannula (3L) Status: Acute (2) Prophylactic measure Assessment and Plan: DVT: SCDs, Heparin 5000sc Q12 GI: Protonix 40mg PO daily [place] healthy diet PT/OT Status: Acute <Alejandro Calloway H - Last Filed: 08/11/17 17:38> Results - Vital Signs Recent Vital Signs: Last Vital Signs Temp 97.9 F 08/11/17 16:58 Pulse 95 H 08/11/17 16:58 Resp 16 08/11/17 16:58 BP 125/75 08/11/17 16:58 Pulse Ox 97 08/11/17 17:28 - Labs Result Diagrams: 08/11/17 12:09 08/11/17 12:09 Labs: Laboratory Results - last 24 hr 08/11/17 08/11/17 08/11/17 11:49 12:09 12:09 WBC 11.8 H RBC 4.57 Hgb 14.9 Hct 43.2 MCV 94.6 H MCH 32.5 H MCHC 34.3 RDW 13.1 Plt Count 234 MPV 8.0 Neut % (Auto) 86.2 H Lymph % (Auto) 6.8 L Young % (Auto) 6.4 Eos % (Auto) 0.4 Baso % (Auto) 0.2 Neut # (Auto) 10.1 H Lymph # (Auto) 0.8 L Young # (Auto) 0.8 Eos # (Auto) 0.1 Baso # (Auto) 0.0 Neutrophils % (Manual) 87 H Lymphocytes % (Manual) 9 L Monocytes % (Manual) 3 Eosinophils % (Manual) 1 Platelet Estimate Normal D-Dimer, Quantitative Puncture Site Rr pCO2 36 pO2 62 L HCO3 25.8 ABG pH 7.45 ABG Total CO2 26.1 ABG O2 Saturation 94.4 L ABG Base Excess 1.3 ABG Hemoglobin 15.4 ABG Carboxyhemoglobin 1.6 H POC ABG HHb (Measured) 5.4 H ABG Methemoglobin 1.5 Wilfredo Test Pos Hgb O2 Saturation 91.5 L Sodium 140 Potassium 4.0 Chloride 101 Carbon Dioxide 24 Anion Gap 19 BUN 12 Creatinine 0.6 L Est GFR ( Amer) > 60 Est GFR (Non-Af Amer) > 60 Random Glucose 160 H Calcium 7.9 L Total Bilirubin 0.5 AST 39 ALT 69 Alkaline Phosphatase 89 Troponin I < 0.0120 NT-Pro-B Natriuret Pep 50.5 Total Protein 7.6 Albumin 4.1 Globulin 3.5 Albumin/Globulin Ratio 1.1 Urine Color Urine Clarity Urine pH Ur Specific [place] Urine Protein Urine Glucose (UA) Urine Ketones Urine Blood Urine Nitrate Urine Bilirubin Urine Urobilinogen Ur Leukocyte Esterase Urine WBC (Auto) Urine RBC (Auto) Ur Squamous Epith Cells Ur Transition Epith Cell Urine Bacteria Urine Opiates Screen Urine Methadone Screen Ur Barbiturates Screen Ur Phencyclidine Scrn Ur Amphetamines Screen U Benzodiazepines Scrn U Oth Cocaine Metabols U Cannabinoids Screen Influenza Typ A,B (EIA) 08/11/17 08/11/17 08/11/17 12:09 16:30 16:30 WBC RBC Hgb Hct MCV MCH MCHC RDW Plt Count MPV Neut % (Auto) Lymph % (Auto) Young % (Auto) Eos % (Auto) Baso % (Auto) Neut # (Auto) Lymph # (Auto) Young # (Auto) Eos # (Auto) Baso # (Auto) Neutrophils % (Manual) Lymphocytes % (Manual) Monocytes % (Manual) Eosinophils % (Manual) Platelet Estimate D-Dimer, Quantitative < 200 Puncture Site pCO2 pO2 HCO3 ABG pH ABG Total CO2 ABG O2 Saturation ABG Base Excess ABG Hemoglobin ABG Carboxyhemoglobin POC ABG HHb (Measured) ABG Methemoglobin Wilfredo Test Hgb O2 Saturation Sodium Potassium Chloride Carbon Dioxide Anion Gap BUN Creatinine Est GFR ( Amer) Est GFR (Non-Af Amer) Random Glucose Calcium Total Bilirubin AST ALT Alkaline Phosphatase Troponin I NT-Pro-B Natriuret Pep Total Protein Albumin Globulin Albumin/Globulin Ratio Urine Color Yellow Urine Clarity Clear Urine pH 6.0 Ur Specific [place] 1.056 H Urine Protein Negative Urine Glucose (UA) Normal Urine Ketones Negative Urine Blood Negative Urine Nitrate Negative Urine Bilirubin Negative Urine Urobilinogen Normal Ur Leukocyte Esterase Neg Urine WBC (Auto) 1 Urine RBC (Auto) 1 Ur Squamous Epith Cells < 1 Ur Transition Epith Cell < 1 Urine Bacteria Rare Urine Opiates Screen Negative Urine Methadone Screen Negative Ur Barbiturates Screen Negative Ur Phencyclidine Scrn Negative Ur Amphetamines Screen Negative U Benzodiazepines Scrn Negative U Oth Cocaine Metabols Negative U Cannabinoids Screen Positive H Influenza Typ A,B (EIA) 08/11/17 Unknown WBC RBC Hgb Hct MCV MCH MCHC RDW Plt Count MPV Neut % (Auto) Lymph % (Auto) Young % (Auto) Eos % (Auto) Baso % (Auto) Neut # (Auto) Lymph # (Auto) Young # (Auto) Eos # (Auto) Baso # (Auto) Neutrophils % (Manual) Lymphocytes % (Manual) Monocytes % (Manual) Eosinophils % (Manual) Platelet Estimate D-Dimer, Quantitative Puncture Site pCO2 pO2 HCO3 ABG pH ABG Total CO2 ABG O2 Saturation ABG Base Excess ABG Hemoglobin ABG Carboxyhemoglobin POC ABG HHb (Measured) ABG Methemoglobin Wilfredo Test Hgb O2 Saturation Sodium Potassium Chloride Carbon Dioxide Anion Gap BUN Creatinine Est GFR ( Amer) Est GFR (Non-Af Amer) Random Glucose Calcium Total Bilirubin AST ALT Alkaline Phosphatase Troponin I NT-Pro-B Natriuret Pep Total Protein Albumin Globulin Albumin/Globulin Ratio Urine Color Urine Clarity Urine pH Ur Specific [place] Urine Protein Urine Glucose (UA) Urine Ketones Urine Blood Urine Nitrate Urine Bilirubin Urine Urobilinogen Ur Leukocyte Esterase Urine WBC (Auto) Urine RBC (Auto) Ur Squamous Epith Cells Ur Transition Epith Cell Urine Bacteria Urine Opiates Screen Urine Methadone Screen Ur Barbiturates Screen Ur Phencyclidine Scrn Ur Amphetamines Screen U Benzodiazepines Scrn U Oth Cocaine Metabols U Cannabinoids Screen Influenza Typ A,B (EIA) Pos for influenza a H Attending/Attestation - Attestation I have personally seen and examined this patient.: Yes I have fully participated in the care of the patient.: Yes I have reviewed all pertinent clinical information: Yes Notes (Text): Medical attending: Patient was seen and examined by me. Agree with the above note by the resident The patient when we saw him did not have flu studies return and I was notified shortly thereafter that he tested positive for influenza. We will start patient on Tamiflu PO BID, IVF, tylenol, and monitor patient There was an order for rocephin - and given that he is coughing so much we will keep this order. Also the solumedrol and pulmicort we will keep as well since he explains to us there is a history of asthma. Patient will need a contact precuation/isolation bed. thank you Alejandro Calloway
[2017-08-11] MEDS: Albuterol-Ipratrop 3 mg / 0.5 (3 ml) UD INH SCH ×2 (16:36→20:31)
[2017-08-11 16:54] LABS: BARBITURATES, UR NEGATIVE (NEGATIVE); BENZODIAZEPINES, UR NEGATIVE (NEGATIVE); OPIATES, UR NEGATIVE (NEGATIVE); PHENCYCLIDINE, UR NEGATIVE (NEGATIVE)
[2017-08-11 16:58] LABS: SQUAMOUS EPITHIAL < 1 /hpf (0-5); URINE BACTERIA RARE (<OCC); URINE BILIRUBIN NEGATIVE (NEGATIVE); URINE BLOOD NEGATIVE (NEGATIVE); URINE CLARITY Clear (Clear); URINE COLOR Yellow (YELLOW); URINE GLUCOSE (UA) NORMAL (Normal); URINE LEUKOCYTE ESTERASE NEG Leu/uL (Negative); URINE PROTEIN NEGATIVE (NEGATIVE); URINE UROBILINOGEN NORMAL mg/dL (0.2-1.0)
[2017-08-11] MEDS: Sodium Chloride 0.9% 1,000 ML IV SCH (18:19)
[2017-08-11] MEDS: MethylPREDNISolone 40 mg Vial IV SCH (18:21)
[2017-08-11 18:43] LABS: CK-MB 1.13 ng/mL (0.0-3.38)
[2017-08-11] MEDS: Budesonide 0.5 mg/2 ml Inhal Susp UD INH SCH (20:32)
[2017-08-12] MEDS: MethylPREDNISolone 40 mg Vial IV SCH ×5 (00:17→23:53)
[2017-08-12] MEDS: Albuterol-Ipratrop 3 mg / 0.5 (3 ml) UD INH SCH ×6 (00:28→20:11)
[2017-08-12] MEDS: Sodium Chloride 0.9% 1,000 ML IV SCH ×4 (05:26→23:17)
[2017-08-12] MEDS: Budesonide 0.5 mg/2 ml Inhal Susp UD INH SCH ×2 (07:24→20:11)
[2017-08-12 07:37] LABS: HEMOGLOBIN 14.7 g/dL (12.0-18.0); LYMPH # 0.8 K/uL (1.0-4.3); LYMPH % 7.9 % (20.0-40.0); MEAN CELL VOLUME 95.8 fL (80.0-94.0); MEAN CORPUSCULAR HGB CONC 34.4 g/dL (33.0-37.0); MEAN PLATELET VOLUME 8.7 fL (7.2-11.7); MONO # 0.3 K/uL (0.0-0.8); MONO % 2.8 % (0.0-10.0); NEUT # 8.5 K/uL (1.8-7.0); NEUT % 89.3 % (50.0-75.0); PLATELET COUNT 221 K/uL (130-400); RBC 4.46 Mil/uL (4.40-5.90); RED CELL DISTRIBUTION WIDTH 13.4 % (11.5-14.5); WHITE BLOOD COUNT 9.5 K/uL (4.8-10.8)
[2017-08-12 07:51] LABS: ALB/GLOB RATIO 1.1 (1.0-2.1); ALBUMIN 3.8 g/dL (3.5-5.0); ALT/SGPT 71 U/L (21-72); AST/SGOT 34 U/L (17-59); BLOOD UREA NITROGEN 17 mg/dL (9-20); CALCIUM 7.9 mg/dl (8.6-10.4); GFR AFRICAN-AMERICAN > 60; GFR NON-AFRICAN AMERICAN > 60
[2017-08-12] MEDS: Pantoprazole 40 mg EC Tab PO SCH (09:04)
--- NOTE | 2017-08-12 09:10 | CP.PCM.PN ---
Subjective - Date & Time of Evaluation Date of Evaluation: 08/12/17 Time of Evaluation: 09:00 - Subjective Subjective: Patient was seen and examined by me Our conversation was with my minimal Greenlandic and his minimal Ecuadorean. He was able to explain to me he did feel somewhat better than yesterday, breathing easier, however still coughing and no phelgm It is still operator when he coughs. He denies fevers, denies chills, denies body aches, deny changes to bowel or bladder, tolerating food ok, no nausea I explained to patient he tested + for influenza. He is now on tamiflu. For now we will also continue rocephin and azithromycin. He is on slow IVF, tylenol and also solumedrol IV. The chest imaging is ok. If he does ok tommorow I think we can DC abx. On exam he did not have the wheezing like he did yesterday. Objective - Vital Signs/Intake and Output Vital Signs (last 24 hours): Temp Pulse Resp BP Pulse Ox 97.5 F L 84 20 112/70 98 08/12/17 07:32 08/12/17 07:32 08/12/17 07:32 08/12/17 07:32 08/12/17 07:32 Intake and Output: 08/12/17 08/12/17 06:59 18:59 Intake Total 440 Balance 440 - Medications Medications: Current Medications Acetaminophen (Tylenol 325mg Tab) 650 mg PO Q6 PRN PRN Reason: Fever >100.4 F Albuterol/Ipratropium (Duoneb 3 Mg/0.5 Mg (3 Ml) Ud) 3 ml INH RQ4 [facility] Last Admin: 08/12/17 07:24 Dose: 3 ml Budesonide (Pulmicort Respules) 0.5 mg INH RQ12 [facility] Last Admin: 08/12/17 07:24 Dose: 0.5 mg Heparin Sodium (Porcine) (Heparin) 5,000 units SC Q12 [facility] Last Admin: 08/12/17 09:04 Dose: 5,000 units Ceftriaxone Sodium 1 gm/ (Sodium Chloride) 100 mls @ 100 mls/hr IVPB DAILY [facility] PRN Reason: Protocol Sodium Chloride (Sodium Chloride 0.9%) 1,000 mls @ 100 mls/hr IV .Q10H [facility] Last Admin: 08/12/17 05:26 Dose: 100 mls/hr Methylprednisolone (Solu-Medrol) 60 mg IV Q6 [facility] Last Admin: 08/12/17 05:25 Dose: 60 mg Montelukast Sodium (Singulair) 10 mg PO HS [facility] Last Admin: 08/11/17 21:34 Dose: 10 mg Oseltamivir Phosphate (Tamiflu Cap) 75 mg PO BID [facility] PRN Reason: Protocol Stop: 08/16/17 17:24 Last Admin: 08/12/17 09:04 Dose: 75 mg Pantoprazole Sodium (Protonix Ec Tab) 40 mg PO DAILY [facility] Last Admin: 08/12/17 09:04 Dose: 40 mg - Labs Labs: 08/12/17 07:17 08/12/17 07:17 - Constitutional Appears: Well, No Acute Distress - Head Exam Head Exam: NORMAL INSPECTION, NORMOCEPHALIC - Eye Exam Eye Exam: EOMI, Normal appearance - ENT Exam ENT Exam: Mucous Membranes Moist - Respiratory Exam Respiratory Exam: Clear to Ausculation Bilateral, NORMAL BREATHING PATTERN. absent: Wheezes Additional comments: Today no wheezing - GI/Abdominal Exam GI & Abdominal Exam: Soft, Normal Bowel Sounds. absent: Guarding, Rigid, Tenderness - Neurological Exam Neurological Exam: Alert, Awake, Oriented x3 Neuro motor strength exam: Left Upper Extremity: 5, Right Upper Extremity: 5, Left Lower Extremity: 5, Right Lower Extremity: 5 - Psychiatric Exam Psychiatric exam: Normal Affect, Normal Mood - Skin Skin Exam: Normal Color, Warm Assessment and Plan - Assessment and Plan (Free Text) Assessment: Assessment & Plan (1) Influenza Assessment and Plan: 08/12: He is now contact/droplet isolation. Yesterday we started him on Tamiflu, tylenol. For now remain on IV abx. If his numbers remain ok then I think we can stop abx tomorrow. (1) Asthma exacerbation Assessment and Plan: 08/12: Today no wheezing on exam. He is still coughing that is non productive. Continue with the IV souledrol as well as nebulizer treatments. He is also reciving pulmicort as well as singulair. Very likley the influenza has set off an asthma exacerbation. The troponins were negative. Hx of asthma CXR (08/06/17): findings most compatibile with reactive small airway disease/ viral bronchitis; no lobar pneumonia. Chest CTA (08/11/17): no large PE; mildly prominent lymph nodes in mediastinum, largest being 1/2x2/5cm in [id number] window; mild dilatation of the ascending aorta measuring up to 4.1cm; mild heterogeneity of the thyroid gland; mild thickening of esophagus. Afebrile, no leukocytosis/bandemia EKG: sinus tachycardiac @103bpm; f/u EKGx2 Duonebs Q4 [facility] Pulmicort 0.5 INH BID Solumedrol 60mg IV Q6 gur[facility]reet Singulair 10mg PO HS Rocephin 1gm Q24h O2 via nasal cannula (3L) (2) Prophylactic measure Assessment and Plan: DVT: SCDs, Heparin 5000sc Q12 GI: Protonix 40mg PO daily [facility] healthy diet PT/OT
[2017-08-12 10:19] LABS: LYMPHOCYTE 4 % (20-40); MONOCYTE 2 % (0-10); NEUTROPHIL 94 % (50-75); PLATELET ESTIMATE NORMAL (NORMAL); TOTAL CELLS COUNTED 100
[2017-08-12 10:20] LABS: ANISOCYTOSIS SLIGHT
--- NOTE | 2017-08-12 16:09 | CARD ---
APPROVED REPORT EXAM: Two-dimensional and M-mode echocardiogram with Doppler and color Doppler. Other Information Quality : AverageRhythm : NSR INDICATION Dyspnea abscess RISK FACTORS Hyperlipidemia M-Mode DIMENSIONS RVDd1.56 (2.1-3.2cm)Left Atrium (MM)4.53 (2.5-4.0cm) IVSd1.02 (0.7-1.1cm)Aortic Root3.51 (2.2-3.7cm) LVDd5.12 (4.0-5.6cm)Aortic Cusp Exc.2.03 (1.5-2.0cm) PWd1.13 (0.7-1.1cm)FS (%) 29 % LVDs3.63 (2.0-3.8cm)LVEF (%)55 (>50%) Aortic Valve AoV Peak Ukspnojo579.6cm/Agnes Peak GR.7mmHg Mitral Valve MV E Boumfjve23.5cm/sMV A Cydeitzh67.8cm/sE/A ratio0.8 TDI E/Lateral E'0.0E/Medial E'0.0 Tricuspid Valve TR Peak Uqvghpqm987qx/sTR Peak Gr.[id number] <Conclusion> tds. poor window. la is moderately dilated. normal size lv,ra & rv. normal lv wall motion & systolic funciton with lvef of 60-65%. mild concnetric lvh. lv diastolic dysfunction grade one. normal mitral & tv. aortic & pv not well seen to comment. mild tr with normal pulmonary systolic pressures of 25 mm of hg. no pericardial effusion. normal size aortic root.
[2017-08-13] MEDS: Albuterol-Ipratrop 3 mg / 0.5 (3 ml) UD INH SCH ×6 (00:51→20:54)
[2017-08-13] MEDS: MethylPREDNISolone 40 mg Vial IV SCH ×4 (05:40→23:36)
[2017-08-13 07:29] LABS: HEMOGLOBIN 13.9 g/dL (12.0-18.0); MEAN CELL VOLUME 96.4 fL (80.0-94.0); MEAN CORPUSCULAR HEMOGLOBIN 32.2 pg (27.0-31.0); MEAN CORPUSCULAR HGB CONC 33.4 g/dL (33.0-37.0); MEAN PLATELET VOLUME 8.4 fL (7.2-11.7); RBC 4.3 Mil/uL (4.40-5.90); RED CELL DISTRIBUTION WIDTH 12.9 % (11.5-14.5); WHITE BLOOD COUNT 15.4 K/uL (4.8-10.8)
[2017-08-13] MEDS: Budesonide 0.5 mg/2 ml Inhal Susp UD INH SCH ×2 (07:35→20:54)
[2017-08-13 08:03] LABS: ALB/GLOB RATIO 1.1 (1.0-2.1); ALBUMIN 3.5 g/dL (3.5-5.0); ALT/SGPT 68 U/L (21-72); AST/SGOT 32 U/L (17-59); BLOOD UREA NITROGEN 20 mg/dL (9-20); CALCIUM 7.7 mg/dl (8.6-10.4); GFR AFRICAN-AMERICAN > 60; GFR NON-AFRICAN AMERICAN > 60
[2017-08-13] MEDS: Sodium Chloride 0.9% 1,000 ML IV SCH ×2 (09:32→19:30)
[2017-08-13] MEDS: Pantoprazole 40 mg EC Tab PO SCH (09:33)
--- NOTE | 2017-08-13 11:56 | CP.PCM.PN ---
Subjective - Date & Time of Evaluation Date of Evaluation: 08/13/17 Time of Evaluation: 11:15 - Subjective Subjective: Patient was seen and examined by me The patient was not in any acute distress, speaking in full sentences. He tells me he decently thinks he is improving just not 50% yet. He still coughs , it is dry and non productive Denied chest pain, denied palpitations, denied abdominal pain. He states that the muscle aches and fevers have gone away Continue Tamiflu, IVF fluid, tyelonol, supportive care He had a Chest CT and echo, these were stable. Objective - Vital Signs/Intake and Output Vital Signs (last 24 hours): Temp Pulse Resp BP Pulse Ox 97.6 F 82 20 128/73 100 08/13/17 07:53 08/13/17 07:53 08/13/17 07:53 08/13/17 07:53 08/13/17 07:53 Intake and Output: 08/13/17 08/13/17 06:59 18:59 Intake Total 860 Output Total 800 Balance 60 - Medications Medications: Current Medications Acetaminophen (Tylenol 325mg Tab) 650 mg PO Q6 PRN PRN Reason: Fever >100.4 F Albuterol/Ipratropium (Duoneb 3 Mg/0.5 Mg (3 Ml) Ud) 3 ml INH RQ4 [facility] Last Admin: 08/13/17 07:35 Dose: 3 ml Budesonide (Pulmicort Respules) 0.5 mg INH RQ12 [facility] Last Admin: 08/13/17 07:35 Dose: 0.5 mg Heparin Sodium (Porcine) (Heparin) 5,000 units SC Q12 [facility] Last Admin: 08/13/17 09:33 Dose: 5,000 units Ceftriaxone Sodium 1 gm/ (Sodium Chloride) 100 mls @ 100 mls/hr IVPB DAILY [facility] PRN Reason: Protocol Last Admin: 08/13/17 09:36 Dose: 100 mls/hr Sodium Chloride (Sodium Chloride 0.9%) 1,000 mls @ 100 mls/hr IV .Q10H [facility] Last Admin: 08/13/17 09:32 Dose: 100 mls/hr Methylprednisolone (Solu-Medrol) 60 mg IV Q6 [facility] Last Admin: 08/13/17 11:51 Dose: 60 mg Montelukast Sodium (Singulair) 10 mg PO HS [facility] Last Admin: 08/12/17 21:38 Dose: 10 mg Oseltamivir Phosphate (Tamiflu Cap) 75 mg PO BID [facility] PRN Reason: Protocol Stop: 08/16/17 17:24 Last Admin: 08/13/17 09:33 Dose: 75 mg Pantoprazole Sodium (Protonix Ec Tab) 40 mg PO DAILY [facility] Last Admin: 08/13/17 09:33 Dose: 40 mg - Labs Labs: 08/13/17 07:22 08/13/17 07:22 - Constitutional Appears: Non-toxic, No Acute Distress - Head Exam Head Exam: NORMAL INSPECTION, NORMOCEPHALIC - Eye Exam Eye Exam: EOMI, Normal appearance - ENT Exam ENT Exam: Mucous Membranes Moist - Respiratory Exam Respiratory Exam: Clear to Ausculation Bilateral, Wheezes Additional comments: Bilateral wheezing - GI/Abdominal Exam GI & Abdominal Exam: Soft, Normal Bowel Sounds - Neurological Exam Neurological Exam: Alert, Awake, Oriented x3 Neuro motor strength exam: Left Upper Extremity: 5, Right Upper Extremity: 5 - Psychiatric Exam Psychiatric exam: Normal Affect, Normal Mood - Skin Skin Exam: Normal Color, Warm Assessment and Plan - Assessment and Plan (Free Text) Assessment: Assessment & Plan (1) Influenza Assessment and Plan: 08/13: He still has a lot of wheezing. No fevers, no more body aches. I explained to him maybe can be discharged tommorow depending on how he does. 08/12: He is now contact/droplet isolation. Yesterday we started him on Tamiflu, tylenol. For now remain on IV abx. If his numbers remain ok then I think we can stop abx tomorrow. (1) Asthma exacerbation Assessment and Plan: 08/13: Still a lot of wheezing. If he does not go tommorow, then probably can decrease the IV solumedrol. Today will stop rocephin IV 08/12: Today no wheezing on exam. He is still coughing that is non productive. Continue with the IV souledrol as well as nebulizer treatments. He is also reciving pulmicort as well as singulair. Very likley the influenza has set off an asthma exacerbation. The troponins were negative. Hx of asthma CXR (08/06/17): findings most compatibile with reactive small airway disease/ viral bronchitis; no lobar pneumonia. Chest CTA (08/11/17): no large PE; mildly prominent lymph nodes in mediastinum, largest being 1/2x2/5cm in [id number] window; mild dilatation of the ascending aorta measuring up to 4.1cm; mild heterogeneity of the thyroid gland; mild thickening of esophagus. Afebrile, no leukocytosis/bandemia EKG: sinus tachycardiac @103bpm; f/u EKGx2 Duonebs Q4 [facility] Pulmicort 0.5 INH BID Solumedrol 60mg IV Q6 [facility] Singulair 10mg PO HS Rocephin 1gm Q24h O2 via nasal cannula (3L) (2) Prophylactic measure Assessment and Plan: DVT: SCDs, Heparin 5000sc Q12 GI: Protonix 40mg PO daily [facility] healthy diet PT/OT
[2017-08-14] MEDS: Albuterol-Ipratrop 3 mg / 0.5 (3 ml) UD INH SCH ×6 (00:40→20:09)
[2017-08-14] MEDS: MethylPREDNISolone 40 mg Vial IV SCH ×3 (05:27→21:35)
[2017-08-14] MEDS: Sodium Chloride 0.9% 1,000 ML IV SCH (05:31)
[2017-08-14 06:26] LABS: HEMOGLOBIN 13.7 g/dL (12.0-18.0); LYMPH # 0.9 K/uL (1.0-4.3); LYMPH % 4.5 % (20.0-40.0); MEAN CELL VOLUME 95.2 fL (80.0-94.0); MEAN CORPUSCULAR HEMOGLOBIN 32.3 pg (27.0-31.0); MEAN CORPUSCULAR HGB CONC 33.9 g/dL (33.0-37.0); MEAN PLATELET VOLUME 8.4 fL (7.2-11.7); MONO # 0.7 K/uL (0.0-0.8); MONO % 3.7 % (0.0-10.0); NEUT # 17.5 K/uL (1.8-7.0); NEUT % 91.8 % (50.0-75.0); NRBC % 0.1 % (0.0-2.0); PLATELET COUNT 207 K/uL (130-400); RBC 4.25 Mil/uL (4.40-5.90); RED CELL DISTRIBUTION WIDTH 13.1 % (11.5-14.5); WHITE BLOOD COUNT 19.1 K/uL (4.8-10.8)
[2017-08-14 06:46] LABS: BLOOD UREA NITROGEN 20 mg/dL (9-20); CALCIUM 7.6 mg/dl (8.6-10.4); GFR AFRICAN-AMERICAN > 60; GFR NON-AFRICAN AMERICAN > 60
[2017-08-14] MEDS: Budesonide 0.5 mg/2 ml Inhal Susp UD INH SCH (08:31)
[2017-08-14 09:19] LABS: BANDS 1 % (0-2); LYMPHOCYTE 7 % (20-40); MONOCYTE 4 % (0-10); NEUTROPHIL 88 % (50-75); PLATELET ESTIMATE NORMAL (NORMAL); TOTAL CELLS COUNTED 100
[2017-08-14] MEDS: Pantoprazole 40 mg EC Tab PO SCH (10:33)
--- NOTE | 2017-08-14 15:14 | CP.PCM.PN ---
<Pasquale Fisher - Last Filed: 08/14/17 15:10> Subjective - Date & Time of Evaluation Date of Evaluation: 08/14/17 Time of Evaluation: 11:00 - Subjective Subjective: PGY1 Medicine note for Dr. Arnold Patient seen and examined at bedside this morning. No acute events overnight. Patient states that he is feeling much better but he is still experiencing some tightness in his chest. He reports improvement from cough and sob with breathing treatments. He is resting comfortably in bed with nasal cannula in place, speaking in full sentences. Denies fevers, chills, nausea, vomiting, diarrhea, constipation, chest pain, abdominal pain, headaches, numbness or tingling. Objective - Vital Signs/Intake and Output Vital Signs (last 24 hours): Temp Pulse Resp BP Pulse Ox 97.5 F L 67 20 138/81 98 08/14/17 07:20 08/14/17 07:20 08/14/17 07:20 08/14/17 07:20 08/14/17 07:20 Intake and Output: 08/14/17 08/14/17 06:59 18:59 Intake Total 710 Output Total 250 Balance 460 - Medications Medications: Current Medications Acetaminophen (Tylenol 325mg Tab) 650 mg PO Q6 PRN PRN Reason: Fever >100.4 F Albuterol/Ipratropium (Duoneb 3 Mg/0.5 Mg (3 Ml) Ud) 3 ml INH RQ4 [facility] Last Admin: 08/14/17 12:01 Dose: 3 ml Heparin Sodium (Porcine) (Heparin) 5,000 units SC Q12 [facility] Last Admin: 08/14/17 10:33 Dose: 5,000 units Methylprednisolone (Solu-Medrol) 40 mg IV Q8 [facility] Last Admin: 08/14/17 13:46 Dose: 40 mg Montelukast Sodium (Singulair) 10 mg PO HS [facility] Last Admin: 08/13/17 21:34 Dose: 10 mg Oseltamivir Phosphate (Tamiflu Cap) 75 mg PO BID [facility] PRN Reason: Protocol Stop: 08/16/17 17:24 Last Admin: 08/14/17 10:33 Dose: 75 mg Pantoprazole Sodium (Protonix Ec Tab) 40 mg PO DAILY [facility] Last Admin: 08/14/17 10:33 Dose: 40 mg Fluticasone/Salmeterol (Advair Diskus 250/50) 1 puff INH RQ12 [facility] - Labs Labs: 08/14/17 06:17 08/14/17 06:17 - Constitutional Appears: Non-toxic, No Acute Distress - Head Exam Head Exam: ATRAUMATIC, NORMOCEPHALIC - Eye Exam Eye Exam: EOMI, Normal appearance - ENT Exam ENT Exam: Mucous Membranes Moist - Respiratory Exam Respiratory Exam: Clear to Ausculation Bilateral (good air exchange), Wheezes ( end expiratory only), NORMAL BREATHING PATTERN. absent: Accessory Muscle Use, Rales, Respiratory Distress - Cardiovascular Exam Cardiovascular Exam: REGULAR RHYTHM, +S1, +S2 - Extremities Exam Extremities Exam: absent: Calf Tenderness, Pedal Edema - Neurological Exam Neurological Exam: Alert, Awake, Oriented x3 - Psychiatric Exam Psychiatric exam: Normal Affect, Normal Mood - Skin Skin Exam: Dry, Warm Assessment and Plan - Assessment and Plan (Free Text) Plan: Influenza 08/14: Patient has completed 3 days of Tamiful - contact/droplet isolation and telemetry has been discontinued. 08/13: He still has a lot of wheezing. No fevers, no more body aches. I explained to him maybe can be discharged tomorrow depending on how he does. 08/12: He is now contact/droplet isolation. Yesterday we started him on Tamiflu, Tylenol. For now remain on IV abx. If his numbers remain ok then I think we can stop abx tomorrow. Asthma exacerbation 08/14: Started on Advair Diskus 250/50 1 puff INH q12h [facility], decreased Solumedrol to 40mg IV q8h. f/u pre/post-treatment peak flow. 08/13: Still a lot of wheezing. If he does not go tomorrow, then probably can decrease the IV solumedrol. Today will stop Rocephin IV 08/12: Today no wheezing on exam. He is still coughing that is non productive. Continue with the IV soulmedrol as well as nebulizer treatments. He is also receiving Pulmicort as well as singulair. Very likely the influenza has set off an asthma exacerbation. The troponins were negative. Hx of asthma CXR (08/06/17): findings most compatibile with reactive small airway disease/ viral bronchitis; no lobar pneumonia. Chest CTA (08/11/17): no large PE; mildly prominent lymph nodes in mediastinum, largest being 1/2x2/5cm in [id number] window; mild dilatation of the ascending aorta measuring up to 4.1cm; mild heterogeneity of the thyroid gland; mild thickening of esophagus. Afebrile, leukocytosis (thought to be secondary to IV solumedrol use), no bandemia EKG: sinus tachycardiac @103bpm Resting comfortably at 82bpm in NSR - telemetry discontinued. Duonebs Q4 [facility] Pulmicort 0.5 INH BID - discontinued. Solumedrol 60mg IV Q6 [facility] - decreased to 40mg IV Q8H [facility] Singulair 10mg PO HS Rocephin 1gm Q24h - discontinued. Advair Diskus 250/50 1 puff INH q12h [facility] O2 via nasal cannula (3L) Prophylactic measure DVT: SCDs, Heparin 5000sc Q12 GI: Protonix 40mg PO daily [facility] healthy diet PT/OT Dispo: Will hopefully discharge home tomorrow. Case discussed with Dr. Clayton Morann PGY1 <Cydney Arnold V - Last Filed: 08/14/17 17:32> Objective - Vital Signs/Intake and Output Vital Signs (last 24 hours): Temp Pulse Resp BP Pulse Ox 98.0 F 82 20 112/68 97 08/14/17 15:25 08/14/17 15:25 08/14/17 15:25 08/14/17 15:25 08/14/17 15:25 Intake and Output: 08/14/17 08/14/17 06:59 18:59 Intake Total 710 1080 Output Total 250 Balance 460 1080 - Medications Medications: Current Medications Acetaminophen (Tylenol 325mg Tab) 650 mg PO Q6 PRN PRN Reason: Fever >100.4 F Albuterol/Ipratropium (Duoneb 3 Mg/0.5 Mg (3 Ml) Ud) 3 ml INH RQ4 [facility] Last Admin: 08/14/17 12:01 Dose: 3 ml Heparin Sodium (Porcine) (Heparin) 5,000 units SC Q12 [facility] Last Admin: 08/14/17 10:33 Dose: 5,000 units Methylprednisolone (Solu-Medrol) 40 mg IV Q8 [facility] Last Admin: 08/14/17 13:46 Dose: 40 mg Montelukast Sodium (Singulair) 10 mg PO HS [facility] Last Admin: 08/13/17 21:34 Dose: 10 mg Oseltamivir Phosphate (Tamiflu Cap) 75 mg PO BID [facility] PRN Reason: Protocol Stop: 08/16/17 17:24 Last Admin: 08/14/17 10:33 Dose: 75 mg Pantoprazole Sodium (Protonix Ec Tab) 40 mg PO DAILY [facility] Last Admin: 08/14/17 10:33 Dose: 40 mg Fluticasone/Salmeterol (Advair Diskus 250/50) 1 puff INH RQ12 [facility] - Labs Labs: 08/14/17 06:17 08/14/17 06:17 Attending/Attestation - Attestation I have personally seen and examined this patient.: Yes I have fully participated in the care of the patient.: Yes I have reviewed all pertinent clinical information, including history, physical exam and plan: Yes Notes (Text): Patient seen, examined and case discussed with day-time resident. Patient seen this morning on droplet precaution for influenza. Patient has been on tamiflu, today is day 4. Patient has history of asthma, there is no prior peak flow to compare to see how well patient is improving. Patient has been on NINA every 4 hours and high dose IV steroids since admission. Patient has completed ABG and CT angio. Angio has ruled out pulmonary embolus. Patient is noted to be hypoxic on the ABG. Patient had previously has cough that did not improve and 2 recent ED visits for asthma. Patient reports he does not have nebulizer machine at home, he does not have prescription for it. Patient reports he does not smoke and not exposed to smokers. Patient started on LABA today and lower IV steroid dose. Consult pulm for further recommendations. 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 Will start Azithromycin to cover for atypical. Order for serology for Mycoplasma IgM, strep pneumonia, and legionella. Assessment/Plan 1) Influenza A * Tamiflu 75mg PO BID (active since 08/11/17) * Discontinue droplet since patient is on day 4. 2) Moderate Asthma exacerbation * Pulmonary (Dr. Logan) on consult-->help appreciated * Duonebs Q 4H scheduled * Solumedrol 40mg IV Q8H (T[facility]) * Start Advair 250/50 1 puff Q12H * Chest CTA (3/23/18): no large PE; mildly prominent lymph nodes in mediastinum , largest being 1/2x2/5cm in aortopulmonary window; mild dilatation of the ascending aorta measuring up to 4.1cm; mild heterogeneity of the thyroid gland; mild thickening of esophagus. * CXR (08/06/17): findings most compatibile with reactive small airway disease/ viral bronchitis; no lobar pneumonia. * ABG performed during admission: patient is hypoxic. Will repeat ABG * Physical therapy on case: patient desaturates to 92% after 50ft. will check to see if patient improves * Singulair 10mg PO qHS * Will check Mycoplasma IgM, Legionella urine, and Strep pneumoniae urine * On oxygen 2-3 Liters on nasal cannula 3) Prophylactic measure * DVT Ppx: SCDs and Heparin 5000sc Q12H * GI: Protonix 40mg PO daily * Heart healthy diet * PT/OT eval Disposition: will follow-up with pulmonary, possible discharge planning for tomorrow.
[2017-08-14 17:35] LABS: ABG ALLEN TEST PO; ARTERIAL BLOOD GAS HCO3 26.2 mmol/L (21-28); ARTERIAL BLOOD GAS HEMOGLOBIN 14.4 g/dL (11.7-17.4); ARTERIAL BLOOD GAS O2 SAT 98.2 % (95-98); ARTERIAL BLOOD GAS PCO2 38 mm/Hg (35-45); ARTERIAL BLOOD GAS PH 7.44 (7.35-7.45); ARTERIAL BLOOD GAS PO2 85 mm/Hg (80-100)
[2017-08-14] MEDS ORDERED: Azithromycin 500 MG in Sodium Chloride 0.9% 250 ML IVPB SCH (18:00)
[2017-08-14] MEDS ORDERED: Fluticasone-Salmeterol 250-50mcg Diskus INH SCH (20:00)
[2017-08-14] MEDS: Fluticasone-Salmeterol 250-50mcg Diskus INH SCH (20:10)
[2017-08-14 23:59] VITALS: RESP 20
[2017-08-15] MEDS: Albuterol-Ipratrop 3 mg / 0.5 (3 ml) UD INH SCH ×5 (03:09→15:45)
[2017-08-15] MEDS: MethylPREDNISolone 40 mg Vial IV SCH ×2 (05:20→13:02)
[2017-08-15 07:30] LABS: BASO % 0.1 % (0.0-2.0); LYMPH % 6.3 % (20.0-40.0); MEAN CELL VOLUME 95.1 fL (80.0-94.0); MEAN CORPUSCULAR HEMOGLOBIN 32.9 pg (27.0-31.0); MEAN CORPUSCULAR HGB CONC 34.6 g/dL (33.0-37.0); MEAN PLATELET VOLUME 8.6 fL (7.2-11.7); MONO # 0.8 K/uL (0.0-0.8); MONO % 5.3 % (0.0-10.0); NEUT # 14.1 K/uL (1.8-7.0); NEUT % 88.3 % (50.0-75.0); PLATELET COUNT 196 K/uL (130-400); RBC 4.25 Mil/uL (4.40-5.90); RED CELL DISTRIBUTION WIDTH 12.9 % (11.5-14.5)
[2017-08-15 07:38] VITALS: BP 120/73; PULSE 82; TEMP 97.8; O2SAT 98
[2017-08-15 08:09] LABS: BLOOD UREA NITROGEN 21 mg/dL (9-20); CALCIUM 7.3 mg/dl (8.6-10.4); GFR AFRICAN-AMERICAN > 60; GFR NON-AFRICAN AMERICAN > 60
[2017-08-15 08:33] LABS: LYMPHOCYTE 6 % (20-40); MONOCYTE 5 % (0-10); NEUTROPHIL 89 % (50-75); PLATELET ESTIMATE NORMAL (NORMAL); TOTAL CELLS COUNTED 100
[2017-08-15] MEDS: Fluticasone-Salmeterol 250-50mcg Diskus INH SCH (08:38)
[2017-08-15] MEDS: Pantoprazole 40 mg EC Tab PO SCH (09:34)
[2017-08-15] MEDS ORDERED: Pneumococcal 23-Valent Vaccine IM ONE (10:00)
--- NOTE | 2017-08-15 15:15 | CP.PCM.CON ---
History of Present Illness - History of Present Illness History of Present Illness: reason for consultation: shortness of breath 57-year-old male with a history of asthma presented to emergency room complaining of shortness of breath. Patient states shortness of breath started 3 weeks ago and progressively got worse. Denies fever or chills, denies chest pain. total complaining of cough which is mostly dry. PMHx: Asthma SurgHx: Denies FamHx: Mother- DM SocHx: denies tobacco/drug/alcohol use; states he has an occasional 1/2 a beer over the summer; lives in [place] with roomates; not currently working- formerly worked changing tires. Allergies: NKDA Medications: albuterol prn, nebulizer prn Review of Systems - Review of Systems All systems: reviewed and no additional remarkable complaints except (shortness of breath and cough) Past Patient History - Infectious Disease Hx of Infectious Diseases: None - Past Medical History & Family History Past Medical History?: Yes - Past Social History Smoking Status: Never Smoked - CARDIAC Hx Cardiac Disorders: No - PULMONARY Hx Respiratory Disorders: Yes Hx Asthma: Yes - NEUROLOGICAL Hx Neurological Disorder: No - HEENT Hx HEENT Problems: No - RENAL Hx Chronic Kidney Disease: No - ENDOCRINE/METABOLIC Hx Endocrine Disorders: No - HEMATOLOGICAL/ONCOLOGICAL Hx Blood Disorders: No Hx Human Immunodeficiency Virus (HIV): No - INTEGUMENTARY Hx Dermatological Problems: No - MUSCULOSKELETAL/RHEUMATOLOGICAL Hx Musculoskeletal Disorders: No Hx Falls: No - GASTROINTESTINAL Hx Gastrointestinal Disorders: No - GENITOURINARY/GYNECOLOGICAL Hx Genitourinary Disorders: No - PSYCHIATRIC Hx Psychophysiologic Disorder: No Hx Substance Use: No - SURGICAL HISTORY Hx Surgeries: No - ANESTHESIA Hx Anesthesia: No Hx Anesthesia Reactions: No Hx Malignant Hyperthermia: No Has any member of the family had a problem w/ anesthesia?: No Meds Home Medications: Home Medication List Medication Instructions Recorded Confirmed Type Albuterol Sulfate [Proair 1 mcg IH PRN PRN #1 inhaler 08/15/17 Rx Respiclick] Azithromycin [Z-Aniket] 250 mg PO ASDIR #6 tab 08/15/17 Rx Fluticasone/Salmeterol 250/50 1 puff INH RQ12 #0 puff 08/15/17 Rx [Advair Diskus 250/50] Methylprednisolone [Medrol Dose See Taper PO ASDIR #21 mg 08/15/17 Rx Pack (21 tabs)] Montelukast [Singulair] 10 mg PO HS tab 08/15/17 Rx Oseltamivir [Tamiflu Cap] 75 mg PO BID cap 08/15/17 Rx Allergies/Adverse Reactions: Allergies Allergy/AdvReac Type Severity Reaction Status Date / Time No Known Allergies Allergy Verified 08/11/17 10:50 - Medications Medications: Current Medications Acetaminophen (Tylenol 325mg Tab) 650 mg PO Q6 PRN PRN Reason: Fever >100.4 F Albuterol/Ipratropium (Duoneb 3 Mg/0.5 Mg (3 Ml) Ud) 3 ml INH RQ4 [facility] Last Admin: 08/15/17 13:53 Dose: 3 ml Heparin Sodium (Porcine) (Heparin) 5,000 units SC Q12 [facility] Last Admin: 08/15/17 09:34 Dose: 5,000 units Azithromycin 500 mg/ Sodium (Chloride) 250 mls @ 250 mls/hr IVPB DAILY [facility] PRN Reason: Protocol Last Admin: 08/15/17 09:34 Dose: 250 mls/hr Methylprednisolone (Solu-Medrol) 40 mg IV Q8 [facility] Last Admin: 08/15/17 13:02 Dose: 40 mg Montelukast Sodium (Singulair) 10 mg PO HS [facility] Last Admin: 08/14/17 21:35 Dose: 10 mg Oseltamivir Phosphate (Tamiflu Cap) 75 mg PO BID [facility] PRN Reason: Protocol Stop: 08/16/17 17:24 Last Admin: 08/15/17 09:34 Dose: 75 mg Pantoprazole Sodium (Protonix Ec Tab) 40 mg PO DAILY [facility] Last Admin: 08/15/17 09:34 Dose: 40 mg Fluticasone/Salmeterol (Advair Diskus 250/50) 1 puff INH RQ12 [facility] Last Admin: 08/15/17 08:38 Dose: 1 puff Physical Exam - Head Exam Head Exam: ATRAUMATIC, NORMOCEPHALIC - Eye Exam Eye Exam: Normal appearance - ENT Exam ENT Exam: Mucous Membranes Moist - Neck Exam Neck exam: Positive for: Normal Inspection - Respiratory Exam Respiratory Exam: Rhonchi, Wheezes - Cardiovascular Exam Cardiovascular Exam: REGULAR RHYTHM - GI/Abdominal Exam GI & Abdominal Exam: Normal Bowel Sounds, Soft - Extremities Exam Extremities exam: Positive for: normal inspection - Neurological Exam Neurological exam: Alert, Oriented x3 Results - Vital Signs Recent Vital Signs: Last Vital Signs Temp 97.8 F 08/15/17 07:37 Pulse 82 08/15/17 07:37 Resp 20 08/15/17 07:37 BP 120/73 08/15/17 07:37 Pulse Ox 98 08/15/17 07:37 - Labs Result Diagrams: 08/15/17 07:08 08/15/17 07:08 Labs: Laboratory Results - last 24 hr 08/14/17 08/14/17 08/15/17 17:30 19:42 07:08 WBC 16.0 H RBC 4.25 L Hgb 14.0 Hct 40.4 MCV 95.1 H MCH 32.9 H MCHC 34.6 RDW 12.9 Plt Count 196 MPV 8.6 Neut % (Auto) 88.3 H Lymph % (Auto) 6.3 L Blaine % (Auto) 5.3 Eos % (Auto) 0.0 Baso % (Auto) 0.1 Neut # (Auto) 14.1 H Lymph # (Auto) 1.0 Blaine # (Auto) 0.8 Eos # (Auto) 0.0 Baso # (Auto) 0.0 Neutrophils % (Manual) 89 H Lymphocytes % (Manual) 6 L Monocytes % (Manual) 5 Platelet Estimate Normal Puncture Site Rra pCO2 38 pO2 85 HCO3 26.2 ABG pH 7.44 ABG Total CO2 27.0 ABG O2 Saturation 98.2 H ABG Base Excess 1.7 ABG Hemoglobin 14.4 ABG Carboxyhemoglobin 1.7 H POC ABG HHb (Measured) 1.7 ABG Methemoglobin 1.6 Wilfredo Test Po A-a O2 Difference 96.0 Respiratory Index 1.1 Hgb O2 Saturation 95.0 Liter Flow 3.0 FiO2 32.0 Sodium Potassium Chloride Carbon Dioxide Anion Gap BUN Creatinine Est GFR ( Amer) Est GFR (Non-Af Amer) Random Glucose Calcium Mycoplasma pneumon IgM Negative 08/15/17 07:08 WBC RBC Hgb Hct MCV MCH MCHC RDW Plt Count MPV Neut % (Auto) Lymph % (Auto) Blaine % (Auto) Eos % (Auto) Baso % (Auto) Neut # (Auto) Lymph # (Auto) Blaine # (Auto) Eos # (Auto) Baso # (Auto) Neutrophils % (Manual) Lymphocytes % (Manual) Monocytes % (Manual) Platelet Estimate Puncture Site pCO2 pO2 HCO3 ABG pH ABG Total CO2 ABG O2 Saturation ABG Base Excess ABG Hemoglobin ABG Carboxyhemoglobin POC ABG HHb (Measured) ABG Methemoglobin Wilfredo Test A-a O2 Difference Respiratory Index Hgb O2 Saturation Liter Flow FiO2 Sodium 137 Potassium 4.1 Chloride 97 L Carbon Dioxide 29 Anion Gap 15 BUN 21 H Creatinine 0.7 L Est GFR ( Amer) > 60 Est GFR (Non-Af Amer) > 60 Random Glucose 196 H Calcium 7.3 L Mycoplasma pneumon IgM Assessment & Plan (1) Asthma exacerbation Status: Acute Comment: continue IV steroids for now. Continue nebulizer treatment and antibiotics
--- NOTE | 2017-08-15 17:17 | CP.PCM.DIS ---
<Pasquale Fisher - Last Filed: 08/15/17 20:12> Provider - Provider Date of Admission: 08/11/17 14:17 Attending physician: Cydney Arnold DO Consults: Jewel Logan Time Spent in preparation of Discharge (in minutes): 30 Hospital Course - Lab Results Lab Results: Most Recent Lab Values WBC 16.0 K/uL (4.8-10.8) H 08/15/17 07:08 RBC 4.25 Mil/uL (4.40-5.90) L 08/15/17 07:08 Hgb 14.0 g/dL (12.0-18.0) 08/15/17 07:08 Hct 40.4 % (35.0-51.0) 08/15/17 07:08 MCV 95.1 fL (80.0-94.0) H 08/15/17 07:08 MCH 32.9 pg (27.0-31.0) H 08/15/17 07:08 MCHC 34.6 g/dL (33.0-37.0) 08/15/17 07:08 RDW 12.9 % (11.5-14.5) 08/15/17 07:08 Plt Count 196 K/uL (130-400) 08/15/17 07:08 MPV 8.6 fL (7.2-11.7) 08/15/17 07:08 Neut % (Auto) 88.3 % (50.0-75.0) H 08/15/17 07:08 Lymph % (Auto) 6.3 % (20.0-40.0) L 08/15/17 07:08 Clark % (Auto) 5.3 % (0.0-10.0) 08/15/17 07:08 Eos % (Auto) 0.0 % (0.0-4.0) 08/15/17 07:08 Baso % (Auto) 0.1 % (0.0-2.0) 08/15/17 07:08 Neut # (Auto) 14.1 K/uL (1.8-7.0) H 08/15/17 07:08 Lymph # (Auto) 1.0 K/uL (1.0-4.3) 08/15/17 07:08 Clark # (Auto) 0.8 K/uL (0.0-0.8) 08/15/17 07:08 Eos # (Auto) 0.0 K/uL (0.0-0.7) 08/15/17 07:08 Baso # (Auto) 0.0 K/uL (0.0-0.2) 08/15/17 07:08 Neutrophils % (Manual) 89 % (50-75) H 08/15/17 07:08 Band Neutrophils % 1 % (0-2) 08/14/17 06:17 Lymphocytes % (Manual) 6 % (20-40) L 08/15/17 07:08 Monocytes % (Manual) 5 % (0-10) 08/15/17 07:08 Eosinophils % (Manual) 1 % (0-4) 08/11/17 12:09 Platelet Estimate Normal (NORMAL) 08/15/17 07:08 RBC Morphology Normal 08/14/17 06:17 Anisocytosis (manual) Slight 08/12/17 07:17 D-Dimer, Quantitative < 200 ng/mlDDU (0-243) 08/11/17 12:09 Puncture Site Rra 08/14/17 17:30 pCO2 38 mm/Hg (35-45) 08/14/17 17:30 pO2 85 mm/Hg (80-100) 08/14/17 17:30 HCO3 26.2 mmol/L (21-28) 08/14/17 17:30 ABG pH 7.44 (7.35-7.45) 08/14/17 17:30 ABG Total CO2 27.0 mmol/L (22-28) 08/14/17 17:30 ABG O2 Saturation 98.2 % (95-98) H 08/14/17 17:30 ABG Base Excess 1.7 mmol/L (-2.0-3.0) 08/14/17 17:30 ABG Hemoglobin 14.4 g/dL (11.7-17.4) 08/14/17 17:30 ABG Carboxyhemoglobin 1.7 % (0.5-1.5) H 08/14/17 17:30 POC ABG HHb (Measured) 1.7 % (0.0-5.0) 08/14/17 17:30 ABG Methemoglobin 1.6 % (0.0-3.0) 08/14/17 17:30 Wilfredo Test Po 08/14/17 17:30 A-a O2 Difference 96.0 mm/Hg 08/14/17 17:30 Respiratory Index 1.1 08/14/17 17:30 Hgb O2 Saturation 95.0 % (95.0-98.0) 08/14/17 17:30 Liter Flow 3.0 08/14/17 17:30 FiO2 32.0 % 08/14/17 17:30 Sodium 137 mmol/L (132-148) 08/15/17 07:08 Potassium 4.1 mmol/L (3.6-5.2) 08/15/17 07:08 Chloride 97 mmol/L (98-107) L 08/15/17 07:08 Carbon Dioxide 29 mmol/L (22-30) 08/15/17 07:08 Anion Gap 15 (10-20) 08/15/17 07:08 BUN 21 mg/dL (9-20) H 08/15/17 07:08 Creatinine 0.7 mg/dL (0.8-1.5) L 08/15/17 07:08 Est GFR ( Amer) > 60 08/15/17 07:08 Est GFR (Non-Af Amer) > 60 08/15/17 07:08 Random Glucose 196 mg/dL (75-110) H 08/15/17 07:08 Calcium 7.3 mg/dl (8.6-10.4) L 08/15/17 07:08 Total Bilirubin 0.4 mg/dL (0.2-1.3) 08/13/17 07:22 AST 32 U/L (17-59) 08/13/17 07:22 ALT 68 U/L (21-72) 08/13/17 07:22 Alkaline Phosphatase 81 U/L (38-126) 08/13/17 07:22 Total Creatine Kinase 73 U/L (55-170) 08/12/17 00:28 CK-MB (Mass) 0.90 ng/mL (0.0-3.38) 08/12/17 00:28 Troponin I < 0.0120 ng/mL (0.00-0.120) 08/12/17 00:28 NT-Pro-B Natriuret Pep 50.5 pg/mL (0-900) 08/11/17 12:09 Total Protein 6.8 g/dL (6.3-8.3) 08/13/17 07:22 Albumin 3.5 g/dL (3.5-5.0) 08/13/17 07:22 Globulin 3.3 gm/dL (2.2-3.9) 08/13/17 07:22 Albumin/Globulin Ratio 1.1 (1.0-2.1) 08/13/17 07:22 Thyroxine (T4) 7.50 ug/dL (5.5-11.0) 08/12/17 07:17 TSH 3rd Generation 0.21 mIU/L (0.46-4.68) L 08/12/17 07:17 Urine Color Yellow (YELLOW) 08/11/17 16:30 Urine Clarity Clear (Clear) 08/11/17 16:30 Urine pH 6.0 (5.0-8.0) 08/11/17 16:30 Ur Specific [place] 1.056 (1.003-1.030) H 08/11/17 16:30 Urine Protein Negative mg/dL (NEGATIVE) 08/11/17 16:30 Urine Glucose (UA) Normal mg/dL (Normal) 08/11/17 16:30 Urine Ketones Negative mg/dL (NEGATIVE) 08/11/17 16:30 Urine Blood Negative (NEGATIVE) 08/11/17 16:30 Urine Nitrate Negative (NEGATIVE) 08/11/17 16:30 Urine Bilirubin Negative (NEGATIVE) 08/11/17 16:30 Urine Urobilinogen Normal mg/dL (0.2-1.0) 08/11/17 16:30 Ur Leukocyte Esterase Neg Annabel/uL (Negative) 08/11/17 16:30 Urine WBC (Auto) 1 /hpf (0-5) 08/11/17 16:30 Urine RBC (Auto) 1 /hpf (0-3) 08/11/17 16:30 Ur Squamous Epith Cells < 1 /hpf (0-5) 08/11/17 16:30 Ur Transition Epith Cell < 1 /hpf (0-3) 08/11/17 16:30 Urine Bacteria Rare (<OCC) 08/11/17 16:30 Urine Opiates Screen Negative (NEGATIVE) 03/23/18 16:30 Urine Methadone Screen Negative (NEGATIVE) 08/11/17 16:30 Ur Barbiturates Screen Negative (NEGATIVE) 08/11/17 16:30 Ur Phencyclidine Scrn Negative (NEGATIVE) 08/11/17 16:30 Ur Amphetamines Screen Negative (NEGATIVE) 08/11/17 16:30 U Benzodiazepines Scrn Negative (NEGATIVE) 08/11/17 16:30 U Oth Cocaine Metabols Negative (NEGATIVE) 08/11/17 16:30 U Cannabinoids Screen Positive (NEGATIVE) H 08/11/17 16:30 Influenza Typ A,B (EIA) Pos for influenza a (NEGATIVE) H 08/11/17 Unknown Mycoplasma pneumon IgM Negative (NEGATIVE) 08/14/17 19:42 - Hospital Course Hospital Course: As per admission documentation Patient is a 57 year old male with a history of asthma, presents to the ED with complaints of shortness of breath. Patient presented to the ED on Monday and Monday this week with the same complaints. He was sent home with prednisone and amoxicillin; however, patient states he feels worse than before. Patient states his symptoms started 3 weeks ago and are progressively worsening. He states he used his nebulizer 3 times and his albuterol 8 times without relief. Patient reports a similar episode 8 years ago, but has not had any since. He denies recent sickness, sick contacts, environmental triggers, and occupational triggers. Patient complains of chest pain with coughing, a nonproductive cough, headaches, dyspnea at rest and with exertion. Patient states he sleeps on an incline, becomes out of breath after walking up 5 stairs, and short of breath walking to the bathroom. Patient denies chest pain, abdominal pain, nausea, vomiting, fevers, leg pain and swelling, dysuria, diarrhea, and constipation. Hospital Course Patient was admitted to the hospital with acute asthma exacerbation. He tested positive for flu. Influenza 08/14: Patient has completed 3 days of Tamiful - contact/droplet isolation and telemetry has been discontinued. 08/13: He still has a lot of wheezing. No fevers, no more body aches. I explained to him maybe can be discharged tomorrow depending on how he does. 08/12: He is now contact/droplet isolation. For now remain on IV abx. 08/11: Started him on Tamiflu, Tylenol. Asthma exacerbation 08/14: Started on Advair Diskus 250/50 1 puff INH q12h gurpreet, decreased Solumedrol to 40mg IV q8h. f/u pre/post-treatment peak flow. 08/13: Still a lot of wheezing. Stopped Rocephin IV 08/12: Today no wheezing on exam. He is still coughing that is non productive. Continue with the IV soulmedrol as well as nebulizer treatments. He is also receiving Pulmicort as well as singulair. Very likely the influenza has set off an asthma exacerbation. The troponins were negative. CXR (08/06/17): findings most compatibile with reactive small airway disease/ viral bronchitis; no lobar pneumonia. Chest CTA (08/11/17): no large PE; mildly prominent lymph nodes in mediastinum, largest being 1/2x2/5cm in [id number] window; mild dilatation of the ascending aorta measuring up to 4.1cm; mild heterogeneity of the thyroid gland; mild thickening of esophagus. Afebrile, leukocytosis (thought to be secondary to IV solumedrol use), no bandemia Patient's breathing improved greatly on 08/15 and was cleared for discharge. He was discharged home with the following instructions. Discharge Instructions Patient is to be discharged home per Dr. Arnold. Patient is to follow up with the [facility]. Please call and schedule an appointment within one week of being discharged. Patient is being discharged home with new medications. Please take them as directed below until establishing care with the [facility] for further/continued management. Please go directly to the nearest emergency location if you experience any new or worsening symptoms. New Medications (Prescriptions given for all medications): Advair Diskus 250/50 - 1 puff inhaled every 12 hours Singulair 10 mg - Take 1 tab before bedtime every night Azithromycin Pack - Take 2 tabs by mouth on Day 1; Take 1 tab by mouth for Days 2-5 Medrol Dose Pack - Follow directions of taper Albuterol - 1 puff inhaled every 4 hours as needed for shortness of breath Tamiful 75 mg - Take 1 tab every day for next 3 days [facility]: [address] [place] [address] Physical Exam - Constitutional Appears: Non-toxic, No Acute Distress, Appears comfortable - Head Exam Head Exam: ATRAUMATIC, NORMOCEPHALIC - Eye Exam Eye Exam: EOMI, Normal appearance - ENT Exam ENT Exam: Mucous Membranes Moist - Respiratory Exam Respiratory Exam: Clear to Ausculation Bilateral (good air exchange), NORMAL BREATHING PATTERN. absent: Accessory Muscle Use, Rales, Respiratory Distress, Wheezing - Cardiovascular Exam Cardiovascular Exam: REGULAR RHYTHM, +S1, +S2 - Extremities Exam Extremities Exam: absent: Calf Tenderness, Pedal Edema - Neurological Exam Neurological Exam: Alert, Awake, Oriented x3 - Psychiatric Exam Psychiatric exam: Normal Affect, Normal Mood - Skin Skin Exam: Dry, Warm Discharge Exam - Head Exam Head Exam: ATRAUMATIC, NORMOCEPHALIC Discharge Plan - Discharge Medications Prescriptions: RX: Albuterol Sulfate [Proair Respiclick] 1 mcg IH PRN PRN #1 inhaler PRN Reason: Shortness Of Breath RX: Azithromycin [Z-Aniket] 250 mg PO ASDIR #6 tab Methylprednisolone [Medrol Dose Pack (21 tabs)] See Taper PO ASDIR #21 mg - Follow Up Plan Condition: STABLE Disposition: HOME/ ROUTINE Instructions: Asthma in Adults, Azithromycin (Systemic), Avoiding Asthma Triggers, Shortness of Breath (Dyspnea), Albuterol, Fluticasone and Salmeterol, Methylprednisolone, Oseltamivir Additional Instructions: Patient is to be discharged home per Dr. Arnold. Patient is to follow up with the [facility]. Please call and schedule an appointment within one week of being discharged. Patient is being discharged home with new medications. Please take them as directed below until establishing care with the [facility] for further/continued management. Please go directly to the nearest emergency location if you experience any new or worsening symptoms. New Medications (Prescriptions given for all medications): Advair Diskus 250/50 - 1 puff inhaled every 12 hours Singulair 10 mg - Take 1 tab before bedtime every night Azithromycin Pack - Take 2 tabs by mouth on Day 1; Take 1 tab by mouth for Days 2-5 Medrol Dose Pack - Follow directions of taper Albuterol - 1 puff inhaled every 4 hours as needed for shortness of breath Tamiful 75 mg - Take 1 tab every day for next 3 days [facility]: [address] [place] [address] Referrals: [facility] [Other] <Cydney Arnold V - Last Filed: 08/16/17 09:29> Provider - Provider Date of Admission: 08/11/17 14:17 Attending physician: Cydney Arnold, Merged with [facility] Course - Lab Results Lab Results: Most Recent Lab Values WBC 16.0 K/uL (4.8-10.8) H 08/15/17 07:08 RBC 4.25 Mil/uL (4.40-5.90) L 08/15/17 07:08 Hgb 14.0 g/dL (12.0-18.0) 08/15/17 07:08 Hct 40.4 % (35.0-51.0) 08/15/17 07:08 MCV 95.1 fL (80.0-94.0) H 08/15/17 07:08 MCH 32.9 pg (27.0-31.0) H 08/15/17 07:08 MCHC 34.6 g/dL (33.0-37.0) 08/15/17 07:08 RDW 12.9 % (11.5-14.5) 08/15/17 07:08 Plt Count 196 K/uL (130-400) 08/15/17 07:08 MPV 8.6 fL (7.2-11.7) 08/15/17 07:08 Neut % (Auto) 88.3 % (50.0-75.0) H 08/15/17 07:08 Lymph % (Auto) 6.3 % (20.0-40.0) L 08/15/17 07:08 Clark % (Auto) 5.3 % (0.0-10.0) 08/15/17 07:08 Eos % (Auto) 0.0 % (0.0-4.0) 08/15/17 07:08 Baso % (Auto) 0.1 % (0.0-2.0) 08/15/17 07:08 Neut # (Auto) 14.1 K/uL (1.8-7.0) H 08/15/17 07:08 Lymph # (Auto) 1.0 K/uL (1.0-4.3) 08/15/17 07:08 Clark # (Auto) 0.8 K/uL (0.0-0.8) 08/15/17 07:08 Eos # (Auto) 0.0 K/uL (0.0-0.7) 08/15/17 07:08 Baso # (Auto) 0.0 K/uL (0.0-0.2) 08/15/17 07:08 Neutrophils % (Manual) 89 % (50-75) H 08/15/17 07:08 Band Neutrophils % 1 % (0-2) 08/14/17 06:17 Lymphocytes % (Manual) 6 % (20-40) L 08/15/17 07:08 Monocytes % (Manual) 5 % (0-10) 08/15/17 07:08 Eosinophils % (Manual) 1 % (0-4) 08/11/17 12:09 Platelet Estimate Normal (NORMAL) 08/15/17 07:08 RBC Morphology Normal 08/14/17 06:17 Anisocytosis (manual) Slight 08/12/17 07:17 D-Dimer, Quantitative < 200 ng/mlDDU (0-243) 08/11/17 12:09 Puncture Site Rra 08/14/17 17:30 pCO2 38 mm/Hg (35-45) 08/14/17 17:30 pO2 85 mm/Hg (80-100) 08/14/17 17:30 HCO3 26.2 mmol/L (21-28) 08/14/17 17:30 ABG pH 7.44 (7.35-7.45) 08/14/17 17:30 ABG Total CO2 27.0 mmol/L (22-28) 08/14/17 17:30 ABG O2 Saturation 98.2 % (95-98) H 08/14/17 17:30 ABG Base Excess 1.7 mmol/L (-2.0-3.0) 08/14/17 17:30 ABG Hemoglobin 14.4 g/dL (11.7-17.4) 08/14/17 17:30 ABG Carboxyhemoglobin 1.7 % (0.5-1.5) H 08/14/17 17:30 POC ABG HHb (Measured) 1.7 % (0.0-5.0) 08/14/17 17:30 ABG Methemoglobin 1.6 % (0.0-3.0) 08/14/17 17:30 Wilfredo Test Po 08/14/17 17:30 A-a O2 Difference 96.0 mm/Hg 08/14/17 17:30 Respiratory Index 1.1 08/14/17 17:30 Hgb O2 Saturation 95.0 % (95.0-98.0) 08/14/17 17:30 Liter Flow 3.0 08/14/17 17:30 FiO2 32.0 % 08/14/17 17:30 Sodium 137 mmol/L (132-148) 08/15/17 07:08 Potassium 4.1 mmol/L (3.6-5.2) 08/15/17 07:08 Chloride 97 mmol/L (98-107) L 08/15/17 07:08 Carbon Dioxide 29 mmol/L (22-30) 08/15/17 07:08 Anion Gap 15 (10-20) 08/15/17 07:08 BUN 21 mg/dL (9-20) H 08/15/17 07:08 Creatinine 0.7 mg/dL (0.8-1.5) L 08/15/17 07:08 Est GFR ( Amer) > 60 08/15/17 07:08 Est GFR (Non-Af Amer) > 60 08/15/17 07:08 Random Glucose 196 mg/dL (75-110) H 08/15/17 07:08 Calcium 7.3 mg/dl (8.6-10.4) L 08/15/17 07:08 Total Bilirubin 0.4 mg/dL (0.2-1.3) 08/13/17 07:22 AST 32 U/L (17-59) 08/13/17 07:22 ALT 68 U/L (21-72) 08/13/17 07:22 Alkaline Phosphatase 81 U/L (38-126) 08/13/17 07:22 Total Creatine Kinase 73 U/L (55-170) 08/12/17 00:28 CK-MB (Mass) 0.90 ng/mL (0.0-3.38) 08/12/17 00:28 Troponin I < 0.0120 ng/mL (0.00-0.120) 08/12/17 00:28 NT-Pro-B Natriuret Pep 50.5 pg/mL (0-900) 08/11/17 12:09 Total Protein 6.8 g/dL (6.3-8.3) 08/13/17 07:22 Albumin 3.5 g/dL (3.5-5.0) 08/13/17 07:22 Globulin 3.3 gm/dL (2.2-3.9) 08/13/17 07:22 Albumin/Globulin Ratio 1.1 (1.0-2.1) 08/13/17 07:22 Thyroxine (T4) 7.50 ug/dL (5.5-11.0) 08/12/17 07:17 TSH 3rd Generation 0.21 mIU/L (0.46-4.68) L 08/12/17 07:17 Urine Color Yellow (YELLOW) 08/11/17 16:30 Urine Clarity Clear (Clear) 08/11/17 16:30 Urine pH 6.0 (5.0-8.0) 08/11/17 16:30 Ur Specific Ho [place]us 1.056 (1.003-1.030) H 08/11/17 16:30 Urine Protein Negative mg/dL (NEGATIVE) 08/11/17 16:30 Urine Glucose (UA) Normal mg/dL (Normal) 08/11/17 16:30 Urine Ketones Negative mg/dL (NEGATIVE) 08/11/17 16:30 Urine Blood Negative (NEGATIVE) 08/11/17 16:30 Urine Nitrate Negative (NEGATIVE) 08/11/17 16:30 Urine Bilirubin Negative (NEGATIVE) 08/11/17 16:30 Urine Urobilinogen Normal mg/dL (0.2-1.0) 08/11/17 16:30 Ur Leukocyte Esterase Neg Annabel/uL (Negative) 08/11/17 16:30 Urine WBC (Auto) 1 /hpf (0-5) 08/11/17 16:30 Urine RBC (Auto) 1 /hpf (0-3) 08/11/17 16:30 Ur Squamous Epith Cells < 1 /hpf (0-5) 08/11/17 16:30 Ur Transition Epith Cell < 1 /hpf (0-3) 08/11/17 16:30 Urine Bacteria Rare (<OCC) 08/11/17 16:30 Urine Opiates Screen Negative (NEGATIVE) 08/11/17 16:30 Urine Methadone Screen Negative (NEGATIVE) 08/11/17 16:30 Ur Barbiturates Screen Negative (NEGATIVE) 08/11/17 16:30 Ur Phencyclidine Scrn Negative (NEGATIVE) 08/11/17 16:30 Ur Amphetamines Screen Negative (NEGATIVE) 08/11/17 16:30 U Benzodiazepines Scrn Negative (NEGATIVE) 08/11/17 16:30 U Oth Cocaine Metabols Negative (NEGATIVE) 08/11/17 16:30 U Cannabinoids Screen Positive (NEGATIVE) H 08/11/17 16:30 Influenza Typ A,B (EIA) Pos for influenza a (NEGATIVE) H 08/11/17 Unknown Ur L.pneumophila Ag Cancelled 08/14/17 19:42 Mycoplasma pneumon IgM Negative (NEGATIVE) 08/14/17 19:42 Attending/Attestation - Attestation I have personally seen and examined this patient.: Yes I have fully participated in the care of the patient.: Yes I have reviewed all pertinent clinical information, including history, physical exam and plan: Yes Notes (Text): This is late computer entry for 08/15/17. Patient seen, examined and case discussed with day-time resident. Patient seen this morning. Patient reports breathing is much improved. Patient reports he is comfortable walking to and from bathroom. Repeat ABG improved in terms of oxygenation status. Patient medically stable for discharge. Medications upon discharge: 1) Nebulizer machine 2) Albuterol nebules 3) Albuterol HFA 1 puff Q4-6H PRN shortness of breathe 4) Flovent 1 puff INH Q12H (patient cannot afford advair; when he establishes care [facility], can complete patient assistance with pharmaceutical company to obtain) 5) Medrol dose pack; advised to take with food 6) Tamiflu 75mg PO BID for 3 more days 7) Z-pack Patient recommended to follow-up at the [facility] in [place] since patient is from [place]. Patient recommended at his follow-up to obtain pulmonary referral. Patient recommended upon resolution of his flu; for flu and pneumonia vaccines as follow-up. Discharge Diagnoses 1) Influenza A--Stable * Tamiflu 75mg PO BID (active since 08/11/17)-->prescription for remaining days to complete 7 fays given upon discharge * Z-pack prescription given upon discharge * Discontinue droplet since patient is on day 4. 2) Moderate Asthma exacerbation--Stable * Pulmonary (Dr. Logan) on consult-->help appreciated * Duonebs Q 4H scheduled * Solumedrol 40mg IV Q8H (Taper) * Start Advair 250/50 1 puff Q12H * Chest CTA (08/11/17): no large PE; mildly prominent lymph nodes in mediastinum , largest being 1/2x2/5cm in aortopulmonary window; mild dilatation of the ascending aorta measuring up to 4.1cm; mild heterogeneity of the thyroid gland; mild thickening of esophagus. * CXR (08/06/17): findings most compatibile with reactive small airway disease/ viral bronchitis; no lobar pneumonia. * ABG performed during admission: patient is hypoxic. Will repeat ABG * Physical therapy on case: patient desaturates to 92% after 50ft. will check to see if patient improves * Repeat ABG: oxygenation improved * Singulair 10mg PO qHS * Will check Mycoplasma IgM, Legionella urine, and Strep pneumoniae urine * On oxygen 2-3 Liters on nasal cannula Upon discharge: * 1) Nebulizer machine * 2) Albuterol nebules * 3) Albuterol HFA 1 puff Q4-6H PRN shortness of breathe * 4) Flovent 1 puff INH Q12H (patient cannot afford advair; when he establishes care at the [facility], can complete patient assistance with pharmaceutical company to obtain) * 5) Medrol dose pack; advised to take with food * 6) Tamiflu 75mg PO BID for 3 more days * 7) Z-pack 3) Prophylactic measure * DVT Ppx: SCDs and Heparin 5000sc Q12H * GI: Protonix 40mg PO daily * Heart healthy diet * PT/OT eval
== END 2017-08-15 16:00 | disposition home or self-care (01) | DRG 194 ==
LOC: C.ER 10:40 → C.9E 14:17 → C.6T 16:48 → C.9E 17:03 → C.5S 17:18
PROVIDERS: ADMIT Hospitalist; ATTEND Hospitalist
DX: J10.1 Influenza due to other identified influenza virus with other respiratory manifestations (principal); J45.901 Unspecified asthma with (acute) exacerbation; R09.02 Hypoxemia